=== PATIENT | female | born 1935 | race Caucasian/White ===

== ENCOUNTER 2024-08-30 13:19 | Outpatient (CLI) | payer MEDICARE, OTHER, SELFPAY ==
--- NOTE | ~2024-08-30 | MR_ITS ---
MRI of the lumbar spine Clinical History: Spinal stenosis Technique: Axial T2-weighted images, and sagittal T1-weighted, T2-weighted, and T2 fat-sat images wer e acquired. Findings: There is posterior fusion from L3 to L4, with bilateral rods and transpedicular screws pres ent. L5 laminectomy defects present. There is interbody fusion at L4-L5 disc space and L3-L4 disc spa ce. No acute fracture or subluxation seen. There is reactive marrow edema in the L1 and L2 vertebral bodies due to underlying degenerative disc disease. At L1-L2, there is severe degenerative disc narrowing. There is diffuse disc bulge with possible supe rimposed disc protrusion the right paracentral region. There is advanced facet arthropathy. There is moderate to severe spinal canal stenosis/thecal sac compression. There is severe right neural foramin al compromise, and moderate to severe left neural foraminal comprise. At L2-L3, there is moderate degenerative distended. There is diffuse disc bulge with advanced facet a rthropathy, resulting in moderate to severe spinal canal stenosis/thecal sac compression. There is ad vanced bilateral neural foraminal narrowing. At L3-L4, there is minimal disc bulge with advanced facet arthropathy. No central canal stenosis. The re is mild left neural foraminal narrowing. Right neural foramen preserved. At L4-L5, there is minimal disc bulge with advanced facet arthropathy. No central canal stenosis. The re is advanced left neural foraminal narrowing, and mild to moderate right neural foraminal narrowing . At L5-S1, there is moderate degenerative disc narrowing with diffuse disc bulge and severe facet arth ropathy. No central canal stenosis. There is severe bilateral neural foraminal comprise, right worse than left. Paravertebral soft tissues are unremarkable. Impression: Severe degenerative spondylosis, as above, especially at L1-L2 and L2-L3. Postoperative changes from L3 through L5, as above. Reviewed, dictated and finalized at location [employer] Impression: Severe degenerative spondylosis, as above, especially at L1-L2 and L2-L3. Postoperative changes from L3 through L5, as above.
== END 2024-08-30 13:20 | disposition home or self-care (01) ==
PROVIDERS: PCP Family Medicine; Visit Provider Neurological Surgery
DX: M48.07 Spinal stenosis, lumbosacral region (principal); M47.896 Other spondylosis, lumbar region
CPT/HCPCS: 72148

== ENCOUNTER 2025-01-15 12:26 | Outpatient (CLI) | payer MEDICARE, OTHER, SELFPAY ==
--- OUTSIDE RECORDS SUMMARY | 2025-01-15 12:44 | XMS_ITS ---
Author Organization [facility] Care Team Providers Care [employer] Supervisor Name Role Phone Young Shaikh Unavailable Unavailable Allergies and adverse reactions Code CodeSystem Substance Reaction Severity StartDate Concern Status [id number] SNOMED CT Sulfa Antibiotics Unknown 02/10/2021 active 55992 [id number] Glimepiride Unknown 02/10/2021 active Augmentin Unknown 02/10/2021 active Care Team Name Role Address Phone Organization Dates Young Shaikh [facility] [address], [place], [address], [place] (Office): : [facility] 02/10/2021 - 02/15/2021 Immunizations Immunization Status Vaccine Details Vaccine Code CodeSystem Deandre e Notes Influenza completed Influenza, high-dose, split virus, quadrivalent, injectable, preservative free 197 CVX created date: 02/11/2021 administere d date: 07/06/2020 TB 2 Step Mantoux Skin Test completed tuberculin skin test; unspecified formulation lotNumber: [id number] expiry: 11/17/2022 Mfg: [employer] Given 0.1 ml Left Forearm intradermally Step 1 of Multi-step 98 CVX created date: 02/11/2021 consent date: 02/11/2021 administere d date: 02/11/2021 Zostavax (Shingles) completed zoster vaccine recombinant 187 CVX created date: 02/11/2021 administere d date: 10/18/2020 Prevnar 13 completed pneumococcal conjugate vaccine, 13 valent 133 CVX created date: 02/11/2021 administere d date: 01/18/2017 SARS-COV-2 (COVID-19) completed SARS-COV-2 (COVID-19) vaccine, mRNA, spike protein, LNP, preservative free, 30 mcg/0.3mL dose Step 2 of Multi-step with next step required 208 CVX created date: 02/11/2021 administere d date: 12/24/2020 SARS-COV-2 (COVID-19) completed SARS-COV-2 (COVID-19) vaccine, mRNA, spike protein, LNP, preservative free, 30 mcg/0.3mL dose Step 1 of Multi-step with next step required 208 CVX created date: 02/11/2021 administere d date: 12/03/2020 Tdap completed tetanus toxoid, reduced diphtheria toxoid, and acellular pertussis vaccine, adsorbed 115 CVX created date: 02/11/2021 administere d date: 07/06/2019 Mental Status Section Date Assessment Total Score Description 02/15/2021 BIMS 15 cognitively int act CAM 0 No delirium ind icated PHQ-9 00 Problems Problem # Description Date of onset Resolved Date Code CodeSystem Concern Status 1 MUSCLE WEAKNESS (GENERALIZED) 02/11/[address] active 2 CHRONIC OBSTRUCTIVE PULMONARY DISEASE, UNSPECIFIED 02/10/[address] active 3 CONSTIPATION, UNSPECIFIED 02/10/[address] active 4 ENCOUNTER FOR OTHER SPECIFIED SURGICAL AFTERCARE 02/10/[address] active 5 ESSENTIAL (PRIMARY) HYPERTENSION 02/10/[address] active 6 EXTENDED SPECTRUM BETA LACTAMASE (ESBL) RESISTANCE 02/10/[address] active 7 FIBROMYALGIA 02/10/[address] acti ve 8 FUSION OF SPINE, THORACOLUMBAR REGION 02/10/[address] active 9 GASTRO-ESOPHAGEAL REFLUX DISEASE WITHOUT ESOPHAGITIS 02/10/[address] active 10 LOW BACK PAIN 02/10/[address] act blayne 11 MIXED HYPERLIPIDEMIA 02/10/[address] active 12 NOCTURIA 02/10/[address] active 13 TYPE 2 DIABETES MELLITUS WITHOUT COMPLICATIONS 02/10/[address] active 14 UNILATERAL PRIMARY OSTEOARTHRITIS, LEFT KNEE 02/10/[address] active 15 UNILATERAL PRIMARY OSTEOARTHRITIS, RIGHT KNEE 02/10/[address] active 16 UNSPECIFIED HEARING LOSS, BILATERAL 02/10/[address] active 17 UNSPECIFIED OSTEOARTHRITIS, UNSPECIFIED SITE 02/10/[address] active 18 URINARY TRACT INFECTION, SITE NOT SPECIFIED 02/10/[address] active 19 WHEEZING 02/10/[address] active Reason for Referral No Reasons for Referral Entered Social History Social History Observation Description Start Date End Date Code Code System Current Smoking Status Tobacco smoking consumption unknown 648442595 SNOMED CT Sex Assigned At Female 1935 24704-7 [facility] Vital Signs Code Code System Vitals Name Values and Units Timing Information 9279-1 [facility] Respiratory Rate Value=16.0 Units=/m in 02/16/2021 8867-4 [facility] Heart rate Value=88.0 Units=/min 02/2021 61669-1 [facility] O2 % BldC Oximetry Value=95.0 Units= % 02/16/2021 45608-7 [facility] Pain Level Value=0.0 02/15/2021 2339-0 [facility] Blood Sugar Bhpea=624.0 Units=mg/dL 02/15/2021 8462-4 [facility] Blood Pressure-Diastolic Value=76 Un its=mmHg 02/15/2021 8480-6 [facility] Blood Pressure-Systolic Rgphr=065 Un its=mmHg 02/15/2021 8310-5 [facility] Body Temperature Value=97.8 Units= F 02/15/2021 46914-8 [facility] Weight Wnkqe=119.6 Units=Lbs 8302-2 [facility] Height Value=62.0 Units=Inches 02/10/2021
--- OUTSIDE RECORDS SUMMARY | 2025-01-15 12:44 | XMS_ITS | Data Portability ---
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 ASSESSMENT/PLAN: The patient understands the risks of the procedure which include, but are not limited to bleeding, infection, wound breakdown, scarring, injury to adjacent structures, asymmetry and need for additional procedures. Verbal consent was given to proceed. Procedure: Excision of left posterior ear basal cell carcinoma 3.1 cm, intermediate closure 3.4 cm. Patient was numbed using 1% lidocaine with epinephrine in a local field block. Once adequate anesthesia was obtained the patient was prepped and draped in sterile fashion. The lesion was excised in an elliptical fashion and minimally undermined in either direction. The wound was irrigated, and hemostasis was obtained. The incision was closed in two layers with 4-0 Monocryl in the deep dermal layer and 4-0 Nylon in the skin. The patient tolerated the procedure well. The patient underwent the procedure and tolerated it well. I would like to see the patient back in 2 weeks. The incision can be cleansed in the next 24-48 hrs. I have advised light activity for the next 2-3 days to avoid bleeding. We can discuss scar massage and follow up at that time. The patient is amenable to the plan. cbg [email or web address] Not available 02/18/2024 09:54:31 04/09/2024 04/09/2024 The patient has a BCC which was excised, but the margin was positive 12-3:00. She returns for re-excision today. The patient understands the risks of the procedure which include, but are not limited to bleeding, infection, wound breakdown, scarring, injury to adjacent structures, asymmetry and need for additional procedures. The consent was signed prior to proceeding. Patient was numbed using 1% lidocaine with epinephrine in a local field block. Once adequate anesthesia was obtained the patient was prepped and draped in sterile fashion. Procedure: 1. Excision of Re excision Left postauricular area Basal Cell Carcinoma , Length 4.1 cm; Closure: intermediate, 4.4 cm Findings: Marking suture 12 o'clock, superior The lesion was excised in an elliptical fashion. and minimally undermined in either direction. The wound was irrigated, and hemostasis was obtained. The incision was closed in layers with suture. Deep dermal layer: 5-0 monocryl Skin/External layer: 5-0 Nylon A Bacitrican dressing was placed, and the patient tolerated the procedure well. A post-procedure instruction sheet was given to the patient. Tylenol and/or ibuprofen can be taken for pain control when the local anesthetic wears off. Intense activities as well as lifting/bending/ stooping should be avoided for the next 2-3 days to prevent bleeding and trauma to the surgical site. The site can be elevated and ice can be applied as needed. If bleeding occurrs, the patient was advised to hold pressure with ice for 20 minutes and if that doesn't resolve then call the office/contingents supervisor number provided. If pathology was sent, the patient will be called with this information as soon as it is available and has been interpreted by Dr. Steele. The patient was advised to call if any questions or concerns arise such as: fever/chills, spreading redness, severe pain and/or fever over 100.5 [id number] Not available 04/09/2024 14:27:39 04/16/2024 04/16/2024 Pt presents to clinic today for suture removal from Left Postauricular area Sutures were cleaned with alcohol wipe and removed in typical fashion. Sutures were clean, dry, and intact upon removal. Pt tolerated removal well and without complications. Bacitracin was applied to site. Pt was given scar care sheet and instructed to call with any questions/concer ns. [email or web address] Not available 04/16/2024 15:40:14 Plan of Treatment Reminders Order Date Submit Date Provider Last Modified By Organization Details Last Modified Time Details Appointments Establish ed Patient 15.EST 2024 09:30A M Dr. Ye Eckert Not available Not available Not available Establish ed Patient 15.EST 2024 10:30A M Dr. Ye Eckert Not available Not available Not available Establish ed Patient 15.EST 2024 11:15A M Dr. Christine Bell Not available Not available Not available Lab None recorded. Referral None recorded. Procedures None recorded. Surgeries None recorded. Imaging None recorded. Medication Orders None recorded. Patient TargetsNo targets recorded. Patient InstructionsNo instructions recorded. Reason for Referral None Reported. Results Created Date Observation Date Name Description Value Unit Range Abnormal Flag Note LastModifiedBy Organization Detail LastModifiedTime 02/08/20 24 02/11/2024 surgi clint patho logy study tissue exam biopsy [facility] [address],[place] [address] Ph. [phone] Russ Cueva MD, PhD, Medic al Direc tor DIETR NIKHIL MAN , CHRISTINE MANZANO Patie nt: PRASAD YAORenu Marrero e ID: [id number] Repor t Statu s: Final :0 1934 Case #: [id number] Age: 88 Y Gende r: F Date Colle cted: 02/07 MRN # : [id number] Date Recei adán: 02/07 Repor loco Date: 02/10 FINAL DIAGN OSIS: Skin, right exten sor forea rm, shave biops y : - Sebor rheic kerat osis, infla med ICD-1 0: L82.0 Elect farhana Zuñiga ied by Yescia Newell MD Elect farhana melvin 02/10 15:01 SPECI MEN SOURC E: Skin, right exten sor forea rm, shave biops y GROSS DESCR IPTIO N: The speci men conta iner( s) and requi sitio n have the same patie nt name. Recei adán in 10% neutr al buffe red forma yesica for forma yesica-f ixed paraf fin-e mbedd ed secti ons label ed righ t exten sor forea rm is an unori ented 1.5 x 1.2 cm fragm ent of nieves- mayer skin excis ed to a depth of 0.1 cm. A 1.5 x 1.2 x 0.2 cm eleva loco pink- mayer lesio n is prese nt on the skin surfa ce and is adjac ent to the bekah n. The speci men is inked , seria lly secti oned, and entir beverly submi tted for histo logic study in two [facility] ttes. CLINI CLINT INFOR MATIO N: Skin biops y, right exten sor forea rm, IK vs NMSC. Not Available [facility] [address] [place] [address], [id number], 02/11/2024 16:04:03 02/08/20 24 02/08/2024 biops y, tissu e tissue exam biopsy [facility] [address] ,formerly [facility] [place] [address] pH. russ cueva md, phd, medic al dire tor dietr christine werner md patie nt: maira parham id: [id number] repor t statu s: final :0 1934 case #: [id number] age: 88 Y gende r: F date colle cted: 02/07 mrn # : [id number] date recei adán: 02/07 repor loco date: 02/10 final diagn osis: skin, right exten sor forea rm, shave biops y : - sebor rheic kerat osis, infla med ICD-1 0: L82.0 elect farhana zuñiga ied by yesica newell md elect farhana melvin 02/10 15:01 speci men sourc e: skin, right exten sor forea rm, shave biops y gross descr iptio n: the speci men conta iner( s) and requi sitio n have the same patie nt name. recei adán in 10% neutr al buffe red forma yesica for forma yesica-f ixed paraf fin-e mbedd ed secti ons label ed _righ t exten sor forea rm_ IS an unori ented 1.5 x 1.2 cm fragm ent of nieves- mayer skin excis ed to a depth of 0.1 cm. A 1.5 x 1.2 x 0.2 cm eleva loco pink- mayer lesio n IS prese nt on the skin surfa ce and IS adjac ent to the bekah n. the speci men IS inked , seria lly secti oned, and entir beverly submi tted for histo logic study in two [facility] ttes. clini clint infor matio n: skin biops y, right exten sor forea rm, ik vs nmsc. ----- Not Available Not Available 10/15/2024 19:07:29 02/15/20 24 02/19/2024 surgi clint patho logy study tissue exam biopsy [facility] [address],[facility] [place] [address] Ph. Russ Cueva MD, PhD, [facility] al [facility] EMELY ADAIR MD Patijosh nt: PRASAD YAORenu Marrero e ID: [id number] Repor t Statu s: Final :0 1934 Case #: [id number] Age: 88 Y Gende r: F Date Colle cted: 02/14 MRN # : [id number] Date Recei adán: 02/14 Repor loco Date: 02/18 FINAL DIAGN OSIS: Skin, left posta uricu lar area, excis ion: - Basal cell carci noma, nodul ar and infil trati ve types - 12-3: 00 perip heral bekah n posit blayne for tumor - All other bekah ns negat blayne for tumor Elect farhana schmitt Verif ied by Yesica Newell MD Elect farhana Stout turjosh 02/18 11:10 SPECI MEN SOURC E: Skin, left posta uricu lar area, excis ion GROSS DESCR IPTIO N: The speci men conta iner( s) and requi sitio n have the same patie nt name. Recei adán in 10% neutr al buffe red forma yesica for forma yesica-f ixed paraf fin-e mbedd ed secti ons label ed exci graham left posta uricu lar area basal cell carci noma nodul ar infil trati ve stitc h 12:00 super ior is an orien loco 3.2 x 1.6 cm fragm ent of nieves- mayer skin excis ed to the depth of 0.4 cm. A black stitc h repre sents the 12:00 super ior bekah n. A 0.4 x 0.3 x 0.1 cm brown scab- like lesio n is prese nt on the skin surfa ce and is 0.5 cm from the close st bekah n. The speci men is inked black from -- , green from -, and blue from -12, seria lly secti oned, and entir beverly submi tted for histo logic study as follo ws: A1 12:00 tip, A2 3:00 tip A3-A5 remai nder. CLINI CLINT INFOR MATIO N: CLINI CLINT INFOR MATIO N: Skin biops y, left posta uricu lar area, basal cell carci noma nodul ar infil trati ve. Not Available [facility] [address] [place] [address], [id number], 02/19/2024 12:12:57 02/15/20 24 02/15/2024 biops y, tissu e tissue exam biopsy [facility] [address],[facility] [place] [address] pH. [phone] russ cueva md, phd, medic al direc tor cochemely ferrera md patijosh nt: maira parham sampl e id: [id number] repor t statu s: final :0 1934 case #: [id number] age: 88 Y gende r: F date colle cted: 02/14 mrn # : [id number] date recei adán: 02/14 repor loco date: 02/18 final diagn osis: skin, left posta uricu lar area, excis ion: - basal cell carci noma, nodul ar and infil trati ve types - 12-3: 00 perip heral bekah n posit blayne for tumor - all other bekah ns negat blayne for tumor elect farhana schmitt verif ied by yesica newell md elect farhana stout turjosh 02/18 11:10 speci men sourc e: skin, left posta uricu lar area, excis ion gross descr iptio n: the speci men conta iner( s) and requi sitio n have the same patie nt name. recei adán in 10% neutr al buffe red forma yesica for forma yesica-f ixed paraf fin-e mbedd ed secti ons label ed _exci graham left posta uricu lar area basal cell carci noma nodul ar infil trati ve stitc h 12:00 super ior_ IS an orien loco 3.2 x 1.6 cm fragm ent of nieves- mayer skin excis ed to the depth of 0.4 cm. A black stitc h repre sents the 12:00 super ior bekah n. A 0.4 x 0.3 x 0.1 cm brown scab- like lesio n IS prese nt on the skin surfa ce and IS 0.5 cm from the close st bekah n. the speci men IS inked black from -- 6, green from -, and blue from -12, seria lly secti oned, and nikkor beverly submi tted for histo logic study follo ws: A1 12:00 tip, A2 3:00 tip A3-A5 remai nder. clini clint infor matio n: clini clint infor matio n: skin biops y, left posta uricu lar area, basal cell carci noma nodul ar infil trati ve. ----- Not Available Not Available 10/15/2024 19:07:29 04/09/20 24 04/11/2024 surgi clint patho logy study tissue exam biopsy [facility] [address] [facility] [address],[place] [address] Ph. [phone] Russ Cueva MD, PhD, Medic al Direc tor COCHR ANEMELY MD Patie nt: MAIRA PARHAM e ID: [id number] Repor t Statu s: :0 1934 Case #: [id number] Age: 88 Y Gende r: F Date Colle cted: 04/09 MRN # : [id number] Date Recei adán: 04/09 Repor loco Date: FINAL DIAGN OSIS: Skin, left posta uricu lar area, excis ion: - Resid ual basal cell carci noma, infil trati ve type - New bekah n negat blayne for tumor Elect farhana schmitt Verif ied by Yesica Newell MD Elect farhana Signstephen ture 04/11 15:00 SPECI MEN SOURC E: Skin, left posta uricu lar area, excis ion GROSS DESCR IPTIO N: The speci men conta iner( s) and requi sitio n have the same patie nt name. Recei adán in 10% neutr al buffe red forma yesica for forma yesica-f ixed paraf fin-e mbedd ed secti ons label ed reex cisio n left posta uricu lar area basal cell carci noma nodul ar and infil trati ve, stitc h at 12:00 super ior is an orien loco ellip se of nieves- mayer skin and subcu taneo us soft tissu e that is 3.3 x 0.5 cm and is excis ed to a depth of 0.4 cm. A black sutur e desig nates the 12:00 super ior bekah n. There is no defin ite lesio n ident ified gross ly on the skin surfa ce. The true (new) bekah n is inked black 12-3- 6:00, the oppos ite side was inked blue on 12: 00, green on 6-9:0 0. The speci men is seria lly secti oned and entijeremi paul submi tted for histo logic study as follo ws: A1 12:00 tip, A2 6:00 tip, A3 to A5 remai nder from 12:00 to 6:00. CLINI CLINT INFOR MATIO N: CLINI CLINT INFOR MATIO N: Skin biops y, left posta uricu lar area, Basal cell carci noma nodul ar and infil trati ve types . Not Available [facility] [address] [place] [address], [id number], 04/11/2024 16:13:46 Result Notes None recorded. 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 590724241 Active [facility]23 [facility] 4 19:34:42 Seborrheic keratosis 342976498 Active 2023 Dori Matt [facility] 4 12:46:20 Lentiginosi s 265088319 Active 2023 Dori Matt [facility] 4 12:46:24 Inflamed seborrheic keratosis 694536917 [facility] 2023 Dori Matt [facility] 4 12:47:46 Primary basal cell carcinoma of left ear 0403904763457 105 Active 2023 [facility] 4 10:52:59 Basal cell carcinoma of skin 127487577 Active 2023 [facility] 4 10:48:53 Problem Notes None recorded. Medical Equipment None Reported. Allergies Allergen ID Allergen Name Allergen Category Reaction Reaction Severity Criticality Documentation Date Start Date Code Code System Note Provider Name and Address Organization Details Recorded Time 667447 Substance with sulfonami de structure and antibacte rial mechanism of action (substanc e) medicatio n vomiting Not available Not available 11/12/20232013 68111 8003 SNOMED React ion: Vomit ing; Not Available Not Available Not Available 831928 Augmentin medicatio n Not available Not available Not available 11/12/20232018 32274 2 RxNorm Not Available Not Available Not Available Medications Name Sig Start Date Stop Date Status Note LastModified by Organization Details LastModified Time amoxicillin 500 mg capsule TAKE 1 CAPSULE BY MOUTH THREE TIMES DAILY FOR 7 DAYS 08/12 completed Not Available Not Available Not Available fluconazole 100 mg tablet TAKE 1 TABLET BY MOUTH EVERY DAY 08/12 completed Not Available Not Available Not Available prednisone 10 mg tablet active Not Available Not Available Not Available azithromyci n 250 mg tablet TAKE 2 TABLETS BY MOUTH FOR 1 DAY THEN TAKE 1 TABLET BY MOUTH DAILY FOR 4 DAYS 08/12 completed Not Available Not Available Not Available fluconazole 150 mg tablet TAKE 1 TABLET BY MOUTH TODAY AND REPEAT IN 1 WEEK 08/12 completed Not Available Not Available Not Available benzonatate 200 mg capsule TAKE 1 CAPSULE BY MOUTH THREE TIMES DAILY NEEDED 08/12 completed Not Available Not Available Not Available cephalexin 250 mg capsule TAKE 1 CAPSULE BY MOUTH TWICE DAILY 08/12 completed Not Available Not Available Not Available hydrocodone 5 mg-acetamin ophen 325 mg tablet TAKE 1 TABLET BY MOUTH UP TO TWICE DAILY NEEDED active Not Available Not Available No t Available prednisone 20 mg tablet TAKE 1 TABLET BY MOUTH DAILY active Not Available Not Available No t Available glipizide ER 5 mg tablet, extended release 24 hr TAKE 1 TABLET BY MOUTH DAILY active Not Available Not Available No t Available Accu-Chek Softclix Lancets USE TO TEST TWICE DAILY active Not Available Not Available No t Available potassium chloride ER 10 mEq tablet,exte nded release TAKE 1 TABLET BY MOUTH DAILY active Not Available Not Available No t Available ciprofloxac in 250 mg tablet TAKE 1 TABLET BY MOUTH TWICE DAILY 08/12 completed Not Available Not Available Not Available ciprofloxac in 500 mg tablet TAKE 1 TABLET BY MOUTH TWICE DAILY 08/12 completed Not Available Not Available Not Available doxycycline monohydrate 100 mg tablet TAKE 1 TABLET BY MOUTH TWICE DAILY 08/12 completed Not Available Not Available Not Available tramadol 50 mg tablet TAKE 1 TABLET BY MOUTH EVERY 6 HOURS NEEDED active Not Available Not Available No t Available meclizine 25 mg tablet TAKE 1 TABLET BY MOUTH EVERY EIGHT HOURS NEEDED FOR VERTIGO active Not Available Not Available No t Available phenazopyri dine 100 mg tablet TAKE 1 TABLET BY MOUTH THREE TIMES DAILY NEEDED active Not Available Not Available No t Available baclofen 10 mg tablet TAKE 1 TABLET BY MOUTH THREE TIMES DAILY NEEDED 08/12 completed Not Available Not Available Not Available simvastatin 5 mg tablet TAKE 1 TABLET BY MOUTH DAILY active Not Available Not Available No t Available hydrocodone 7.5 mg-acetamin ophen 325 mg tablet TAKE 1 TABLET BY MOUTH FOUR TIMES DAILY NEEDED active Not Available Not Available No t Available cephalexin 500 mg capsule 08/12 completed Not Available Not Available Not Available pantoprazol e 40 mg tablet,daquan yed release Take 1 Tablet by mouth two times daily active Not Available Not Available No t Available cevimeline 30 mg capsule TAKE 1 CAPSULE BY MOUTH DAILY active Not Available Not Available No t Available lisinopril 10 mg-hydrochl orothiazide 12.5 mg tablet TAKE 1 TABLET BY MOUTH DAILY active Not Available Not Available No t Available methylpredn isolone 4 mg tablets in a dose pack FOLLOW PACKAGE DIRECTION S active Not Available Not Available No t Available albuterol sulfate HFA 90 mcg/actuati on aerosol inhaler INHALE 2 PUFFS BY MOUTH THREE TIMES DAILY NEEDED active Not Available Not Available No t Available ondansetron 4 mg disintegrat ing tablet active Not Available Not Available N ot Available cefdinir 300 mg capsule TAKE 1 CAPSULE BY MOUTH TWICE DAILY FOR 10 DAYS 08/12 completed Not Available Not Available Not Available fluticasone propionate 50 mcg/actuati on nasal spray,suspe nsion SPRAY 1 SPRAY INTO NOSTRIL ONCE DAILY 08/12 completed Not Available Not Available Not Available metformin ER 500 mg tablet,exte nded release 24 hr TAKE 1 TABLET BY MOUTH DAILY active Not Available Not Available No t Available cyclobenzap rine 5 mg tablet TAKE 1 TABLET BY MOUTH TWICE DAILY NEEDED FOR MUSCLE SPASMS. DO NOT TAKE WHILE DRIVING OR OPERATING HEAVY EQUIPMENT 08/12 completed Not Available Not Available Not Available nitrofurant oin monohydrate /macrocryst als 100 mg capsule TAKE 1 CAPSULE BY MOUTH EVERY NIGHT AT BEDTIME OR TAKE 1 TWICE DAILY FOR 3 DAYS IF FEEL INFECTION STARTING active Not Available Not Available No t Available pregabalin 75 mg capsule TAKE 1 CAPSULE BY MOUTH TWICE DAILY active Not Available Not Available No t Available pregabalin 100 mg capsule TAKE 1 CAPSULE BY MOUTH THREE TIMES DAILY active Not Available Not Available No t Available Accu-Chek Guide test strips USE TO TEST BLOOD SUGAR TWICE DAILY active Not Available Not Available No t Available Vitals Date Recorded Body height Body mass index (BMI) Body weight Provider Name and Address Organization Details Last Updated DateTime 02/15/2024 167.64 cm 24.7 kg/m2 42863.63 g Rosio Villaltaalexus [facility] 02/15/2024 11:23:14 Date Recorded Body height Body mass index (BMI) Body weight Provider Name and Address Organization Details Last Updated DateTime 04/09/2024 167.64 cm 24.7 kg/m2 58543.63 g Savanna Briones [facility] 04/09/2024 12:02:26 Date Recorded Body height Provider Name an d Address Organization Details Last Updated DateTime 08/12/2024 167.64 cm Dori Gutierrez [facility] 08/12/2024 12:39:43 Social History None recorded. Functional Status None recorded. Mental Status None recorded. Family History Nothing Reported. Medical History No medical history recorded. Gynecological HistoryNo gynecological history recorded. Obstetrics History GPAL:G 0 P 0 0 0 0 Past Encounters Encounter ID Performer Location Encounter Start Date Encounter Closed Date Diagnosis/Indication Diagnosis SNOMED-CT Code Diagnosis ICD10 Code Diagnosis Note [id number] Dori Steele MD [facility] ([place]) [address] [place] [phone] 01/18/2024 11:43:36 01/18/2024 13:59:34 Basal cell carcinoma of postauricular skin 116446122 C44.41 [id number] Dori Steele MD [facility] ([place]) [address] [place] [phone] 02/15/2024 10:53:39 02/15/2024 12:11:11 Primary basal cell carcinoma of left ear 3817483429 183100 C44.411 [id number] Kennedi Vora [facility] [place] ([place]) [address] [place] [phone] 02/28/2024 11:32:43 02/28/2024 12:01:47 Primary basal cell carcinoma of left ear 4031145444 708993 C44.219 Pt presents to clinic today for suture removal from left post ear. Sutures were cleaned with alcohol wipe and removed in typical fashion. Sutures were clean, dry, and intact upon removal. Pt tolerated removal well and without complicati ons. Bacitracin was applied to site. Pt was given scar care sheet and instructed to call with any questions/ concerns. [id number] Dori Steele MD [facility] ([place]) [address] [place] [phone] 04/09/2024 11:52:59 04/09/2024 14:06:11 Basal cell carcinoma of skin 964988429 C44.009 [id number] Jaqui Kim [facility] [place] ([place]) [address] [place] [phone] 04/16/2024 14:37:35 04/17/2024 07:06:48 [id number] Christine Bell MD [facility] ([place]) [address] [place] [address] 08/12/2024 12:12:29 08/12/2024 12:56:42 History of malignant neoplasm of skin excluding melanoma 824973683 Z85.828 History of {{melanoma . Recall in task to reflect the date of the patient's next appointmen t. We discussed the importance of regular skin examinatio ns by a physician as well as monthly self skin examinatio ns. nonmel anoma skin cancer. We discussed the importance of regular skin examinatio ns by a physician as well as self skin examinatio ns.* melan nathanael-in-sit u. Recall in task to reflect the date of her next appointmen t. We discussed the importance of regular skin examinatio ns by a physician as well as monthly self skin examinatio ns. melano ma and nonmelanom a skin cancer. Recall in task to reflect the date of her next appointmen t. We discussed the importance of regular skin examinatio ns by a physician as well as monthly self skin examinatio ns.}} We discussed the worrisome changes to watch for in skin lesions. We discussed the importance of watching for new and/or changing lesions. We discussed the importance of photoprote ction using protective clothing and sunscreen with SPF thirty or higher. Seborrheic keratosis 394 239000 L82.1 {{Hemangio ma Hemangi omas Sebor rheic keratosis Seborrheic keratoses* Acrochord on Acrocho technical director Sebace ous hyperplasi a Telangie ctasia Tel angiectase s Milium M karena Open comedone O pen comedones Neurofibro ma Neurofi bromas Lip omas Fibro us papules}}: The risks and benefits of the procedure, the risks and benefits of alternativ e procedures , as well as the possible consequenc es of not undergoing the procedure were discussed. The potential for recurrence and developmen t of further lesions was discussed. The potential pigmentary changes was discussed. The patient verbalizes understand ing and gives consent to proceed with treatment. {{Lesions on the * were treated with liquid nitrogen. Lesions on the face were treated with liquid nitrogen.# }} The patient tolerated the procedure well. Post-treat ment instructio ns were discussed. Lentiginosis [id number] L 81.4 We discussed the fact that lentigines are actinicall y induced and that they are benign. We discussed the fact that they should be watched carefully for change. We discussed the importance of photoprote ction using protective clothing and sunscreen with SPF fifteen or higher on a regular basis. Inflamed s eborrheic keratosis [id number] L82.0 {{Irritate d seborrheic keratosis* Irritated skin tag}} right posterior arm: We discussed the benign nature of the lesion and that it is legitimate ly irritated. The risks and benefits of the procedure, the risks and benefits of alternativ e procedures , as well as the possible consequenc es of not undergoing the procedure were discussed. The potential for recurrence and developmen t of further lesions was discussed. The potential pigmentary changes was discussed. The patient verbalizes understand ing and gives consent to proceed. {{The lesion was treated with liquid nitrogen.* }}This was discussed with the patient. The patient tolerated the procedure well. Post-treat ment instructio ns were discussed. Patient is asked to call the office if the lesion is not healed/res olved as expected. I asked the patient to return {{in 1* in 2 in 3 in 4 in 5 in 6}} {{weeks mo nth months year* yea rs}} {{as previously scheduled for recheck of for recheck of skin cancer* fo r recheck of actinic keratoses for skin exam for recheck of psoriasis for recheck of actinicall y damaged skin for recheck of melanoma p rn pending pathology report}} . The patient will call with any questions or concerns in the meantime. Health Concerns Section Related Observation LastModified by Organization Detai ls LastModified Time None Recorded Concern Status LastModified by Organization Details LastModified Time None Recorded Advance Directives Directive None Recorded Payers Encounter Date Sequence Insurance Name Policy Number Policy Hair Covered Member ID Hair Member ID Guarantor Name 02/15/2024 1 [place] Pansy J Day [id number] Pansy J Day 02/15/2024 2 [facility] [id number] Pansy J Day [id number] Pansy J Day 02/28/2024 1 [place] Pansy J Day [id number] Pansy J Day 02/28/2024 2 [facility] [id number] Pansy J Day [id number] Pansy J Day 04/09/2024 1 [place] Pansy J Day [id number] Pansy J Day 04/09/2024 2 [facility] [id number] Pansy J Day [id number] Pansy J Day 04/16/2024 1 [place] Pansy J Day [id number] Pansy J Day 04/16/2024 2 [facility] [id number] Pansy J Day [id number] Pansy J Day 08/12/2024 1 [place] Pansy J Day [id number] Pansy J Day 08/12/2024 2 [facility] [id number] Pansy J Day [id number] Pansy J Day Notes Date Note Type Note Provider Name and Address Organization Details Recorded Time 08/12/2024 text/html {{EPV * NPV- Ref er to Dermatology Pratient History form in the EHR, that has been reviewed and signed. Please refer to this form for Past Medical History, Family History and adiitional Social History. EPV/NPV - Refer to Dermatology Patient History form in the HER that has been reviewed and signed. Please refer to this form for Past Medical History, Family History, and additional Social History.}}Date last seen: 02/08/24 for spot check Patient presents today for a: {{3 month recheck of skin cancer 6 month recheck of skin cancer* 1 year recheck of skin cancer}}Recently treated lesion(s): {{No See past/med surg*}}History of actinic keratoses previously treated: {{Yes* No}}Previou s treatments:{{Liqui d nitrogen* Fluorour acil Aldara}} New/changing lesions (location): Itchy lesion on right posterior arm Other concerns: right cheek and right voodoo Regular use of sunscreen with SPF 15 or greater: {{Yes No*}}Regular use of protective clothing: {{Yes No*}}Regular performance of self skin examinations: {{Yes* No}}Major change in health status since last visit: {{Yes No*}} Christine Bell MD [address] [place] [address], [phone], [facility] 08/12/2024 13:01:37 OBGyn Episode No OBEpisode recorded.
--- OUTSIDE RECORDS SUMMARY | 2025-01-15 12:44 | XMS_ITS | Encounter Summary ---
Author Organization [facility] Address [address] [place] [address] Care Team Providers Care Automotive Sales Associate Name Role Phone Young Shaikh MD Primary Care Provider [phone] Sreekanth Donovan MD Unavailable Unavailable Donis Eric MD Unavailable [phone] Contreras Sanchez MD Primary Care Provider [phone] Zeyad Chacon MD Primary Care Provider [phone] Encounter Details Date Type Department Care Team (Late st Contact Info) Description 03/22/2019 Abstract SFL CONVERSION [address] [place] [address] , Generic Conversion, Social History Tobacco Use Types Packs/Day Years Used Date Smoking Tobacco: Former Smokeless Tobacco: Never Alcohol Use Standard Drinks/Week Comments No 0 (1 standard drink = 0.6 oz pur e alcohol) Comments Unknown Sex and Gender Information Value Date Recorded Sex Assigned at Not on file Legal Sex Female 6:11 PM CDT Gender Identity Not on file Sexual Orientation Not on file documented as of this encounter Plan of Treatment Not on file documented as of this encounter Visit Diagnoses Not on filedocumented in this encounter Additional Health Concerns Infection Onset Date Last Indicated Resolved Time MRSA Comment:Self reported positive per PAT, negative MRSA 03/07/2019, cleared (JJ) 10/30/2018 10/30/2018 04/23/2020 1:59 PM C DT COVID-19 Rule Out 04/20/2020 04/20/2020 04/22/2020 3:29 AM CDT ESBL - Extended Spectrum Beta-lactamase Comment:10/17/19 Urine (JJ) 12/08/19 Urine (JJ) 04/23/2020 04/23/2020 COVID-19 Rule Out 11/06/2020 11/06/2020 11/07/2020 1:55 PM QUALITY ASSURANCE REPRESENTATIVE COVID-19 Rule Out 02/04/2021 02/04/2021 02/05/2021 8:40 PM CDT COVID-19 Rule Out 02/10/2021 02/10/2021 02/10/2021 10:24 AM CDT COVID-19 Rule Out 01/28/2022 01/28/2022 01/28/2022 7:03 PM CDT COVID-19 Rule Out 06/05/2022 06/05/2022 06/05/2022 12:55 PM CDT COVID-19 Rule Out 06/14/2022 06/14/2022 06/14/2022 7:22 PM CDT COVID-19 Rule Out 10/15/2023 10/15/2023 10/15/2023 11:13 AM QUALITY ASSURANCE REPRESENTATIVE COVID-19 Rule Out 12/14/2023 12/14/2023 12/14/2023 2:04 PM QUALITY ASSURANCE REPRESENTATIVE documented as of this encounter Care Teams Automotive Sales Associate Relationship Specialty Start Date End Date Young Shaikh MD [address] [place] [address] PCP - General FAMILY PRACTICE 11/23/17 09/04/22 Contreras Sanchez MD [address] [place] [address] PCP - General FAMILY PRACTICE 09/05/22 12/13/23 [place] [address] PCP - General FAMILY PRACTICE 12/14/23 Sreekanth Donovan MD [address] [place] [address] INTERVENTIONAL CARDIOLOGY 10/31/18 09/21/19 Donis Eric MD [address] [place] [address] [place] [employer] Worker CARDIOVASCULAR DISEASE 09/22/19 documented as of this encounter
--- OUTSIDE RECORDS SUMMARY | 2025-01-15 12:44 | XMS_ITS | Clinical Summary ---
Author Organization [facility] Address [address] [place] [address] Phone Care Team Providers Care Mail Processing Clerk Name Role Phone Young Shaikh MD Primary Care Provider Allergies Active Allergy Reactions Criticality Noted Date Comments Sulfa Antibiotics Nausea 09/18/2016 Medications lisinopril (PRINIVIL, ZESTRIL) 10 MG Tablet Take 10 mg by mouth daily. Active Lovastatin 10 MG Tablet Take 10 mg by mouth daily. Active raNITIdine (ZANTAC) 75 MG/5ML Syrup Take 150 mg by mouth every 12 hours. Active pregabalin (LYRICA) 75 MG Capsule Take 75 mg by mouth 3 times daily. Active Active Problems Problem Noted Date Diagnosed Date Incontinence 09/22/2016 Cystocele 09/22/2016 Social History Tobacco Use Types Packs/Day Years Used Date Smoking Tobacco: Former Cigarettes Q uit: 09/14/1992 Alcohol Use Standard Drinks/Week Comments Not Asked 0 (1 standard drink = 0.6 oz pur e alcohol) Comments Unknown Sex and Gender Information Value Date Recorded Sex Assigned at Not on file Legal Sex Female 8:20 PM CDT Gender Identity Not on file Sexual Orientation Not on file Last Filed Vital Signs Vital Sign Reading Time Taken Comments Blood Pressure 128/70 09/18/2016 10:50 AM HOME SALES CONSULTANT Pulse - - Temperature - - Respiratory Rate - - Oxygen Saturation - - Inhaled Oxygen Concentration - - Weight 73.9 kg (163 lb) 09/18/2016 10:50 AM HOME SALES CONSULTANT Height 165.1 cm (5' 5 ) 09/18/2016 10:50 AM HOME SALES CONSULTANT Body Mass Index 27.12 09/18/2016 10:50 AM HOME SALES CONSULTANT Plan of Treatment Health Maintenance Due Date Last Done Comments Hepatitis C Virus (HCV) Screening 1935 TdaP Immunization 1935 Pneumococcal Immunization (5 0+ years) (1 of 1 - PCV) 1986 Zoster Immunization (1 of 2) 1986 Respiratory Syncytial Virus (RSV) Immunization (Adult) (1 - 1-dose 75+ series) 2011 SARS-COV-2 Immunization (1 - 2023- season) 2024 Influenza Immunization (Seas on Ended) 2025 Hepatitis B Immunization Aged Out No longer eligible based on patient's age to complete this topic Meningococcal Immunization (ACWY) Aged Out No longer eligible based on patient's age to complete this topic Rotavirus Immunization Aged Out No lo nger eligible based on patient's age to complete this topic Insurance [facility] Care Teams Mail Processing Clerk Relationship Specialty Start Date End Date Young Shaikh MD [address] [address] PCP - General Family Medicine 09/18/16
--- OUTSIDE RECORDS SUMMARY | 2025-01-15 12:44 | XMS_ITS | Clinical Summary ---
Author Organization [facility] Address [address] [place] [address] Care Team Providers Care Water Pump Servicer Name Role Phone Donis Eric MD Unavailable [phone] Zeyad Chacon MD Primary Care Provider [phone] Allergies Active Allergy Reactions Criticality Noted Date Comments Fexofenadine Unknown 01/23/2022 Amoxicillin-Pot Clavulanate GI Upset Low 04/30/20 19 Glimepiride Nausea Only 04/17/2020 Sulfa Antibiotics Nausea Only 04/17/2020 Medications simvastatin 5 MG tabletIndicatio ns:Hyperlipidem ia Take 1 tablet (5 mg total) by mouth daily. Indications: High Amount of Fats in the Blood 5 8 Active potassium chloride CR 10 MEQ Tab CR tabletIndicatio ns:K+ replacement Take 1 tablet (10 mEq total) by mouth daily. Indications: K+ replacement 8 Active pregabalin (LYRICA) 75 MG capsuleIndicati ons:fibromyalgi a Take 1 capsule (75 mg total) by mouth 3 (three) times daily. Indications: fibromyalgia Active calcium carbonate-vitam in D 600-400 MG-UNIT tabletIndicatio ns:Nutritional Support Take 1 tablet by mouth daily. Indications: Nutritional Support Active Glucose Blood test stripIndication s:glucose monitoring daily. Indications: glucose monitoring 6 Active cevimeline 30 MG capsuleIndicati ons:dry mouth Take 1 capsule (30 mg total) by mouth nightly at bedtime. Indications: dry mouth 3 9 Active albuterol sulfate HFA 108 (90 Base) MCG/ACT inhalerIndicati ons:shortness of breath Inhale into the lungs every 4 (four) hours as needed for Wheezing. Indications: shortness of breath 1 Active STOOL SOFTENER 100 MG capsuleIndicati ons:stool softener Take 1 capsule (100 mg total) by mouth daily as needed. Indications: stool softener 1 Active lisinopril-hydr oCHLOROthiazide (ZESTORETIC) 10-12.5 MG tabletIndicatio ns:blood pressure Take 1 tablet by mouth daily. Indications: blood pressure 2 Active pantoprazole EC (PROTONIX) 40 MG tabletIndicatio ns:acid reflux Take 1 tablet (40 mg total) by mouth 2 (two) times daily. Indications: acid reflux 2 Active glipiZIDE XL (GLUCOTROL XL) 5 MG 24 hr tabletIndicatio ns:Diabetes Mellitus Take 1 tablet (5 mg total) by mouth daily. Indications: Diabetes 30 tablet 3 Active HYDROcodone-maribell taminophen (NORCO) 5-325 MG tabletIndicatio ns:Chronic Pain Take 1 tablet by mouth 2 (two) times daily as needed for Pain. Indications: Chronic Pain 3 Active sucralfate (CARAFATE) 1 G tablet 3 Active SOFTCLIX LANCETS [facility] USE 1 LANCET TO TEST BLOOD GLUCOSE ONCE DAILY 3 Active traMADol (ULTRAM) 50 MG tabletIndicatio ns:Acute Pain < 3 Day Supply Take 1 tablet (50 mg total) by mouth every 6 (six) hours as needed. Indications: Acute Pain < 3 Day Supply 12 tablet 4 Active cefdinir (OMNICEF) 300 MG Cap capsule Take 1 capsule (300 mg total) by mouth 2 (two) times daily. Active fluticasone propionate (FLONASE) 50 MCG/ACT nasal spray 1 spray by Nasal route daily. 1 g 4 Active Active Problems Problem Noted Date Diagnosed Date Degeneration of lumbar intervertebral disc 09/04 Neck pain 04/04/2023 Acute bilateral low back pain with left-sided sc iatica 02/15/2023 Encephalopathy 11/21/2022 Effusion of right knee joint 11/07/2022 Acute cystitis 10/04/2022 UTI (urinary tract infection) 09/05/2022 MRSA (methicillin resistant Staphylococcus aureu s) 06/09/2022 Overview (06/09/2022): MRSA in urine at [facility] approx 5 years ago; has had a Negative nasal culture 03/07/19 Trochanteric bursitis of right hip 04/27/2021 Lumbar back pain 04/06/2021 Radiculopathy, lumbar region 01/07/2021 Recurrent urinary tract infection 11/02/2020 Overview (11/02/2020): Added automatically from request for surgery [id number] Urinary incontinence 04/26/2020 Primary osteoarthritis of right knee 11/10/2019 Primary osteoarthritis of left knee 10/30/2019 Aftercare following surgery 05/14/2019 Complex tear of medial menis cus of right knee as current injury, subsequent encounter 04/03/2019 Lateral meniscus derangement, right 04/03/2019 Arthritis of right knee 03/27/2019 Nocturia 05/03/2018 Osteoarthrosis 05/03/2018 Sensory urge incontinence 05/03/2018 Urinary urgency 05/03/2018 Essential (primary) hypertension 11/23/2017 Hyperlipidemia, mixed 11/23/2017 Knee pain 02/08/2017 Cystocele 09/22/2016 Diabetes mellitus ([facility]) 09/01/2013 Resolved Problems Problem Noted Date Diagnosed Date Resolved Date Abdominal pain 10/04/2022 10/04/2022 Encounter for preventive health examination 09/01/2013 06/25/2020 Family History Medical History Relation Comments Heart Attack Brother Heart Disease Father Heart Disease Mother Diabetes Sister 1 Heart Attack Sister 1 No Known Problems Sister 2 Relation Status Comments Brother Alive Father Mother Sister 1 Sister 2 Alive Social History Tobacco Use Types Packs/Day Years Used Date Smoking Tobacco: Former Cigarettes 0.5 15 1 955 - 1970 Smokeless Tobacco: Never Comments:quit smoking 1997 Alcohol Use Standard Drinks/Week Comments No 0 (1 standard drink = 0.6 oz pur e alcohol) OASIS D0700: Social Isolation Answer Da te Recorded Frequency of experiencing loneliness or isolatio n Never 01/24/2023 OASIS A1250: Transportation Answer Date Recorded Lack of Transportation (Medical) No 01/24/2023 Lack of Transportation (Non-Medical) No 01/24/2023 Patient Unable or Declines to Respond No 01/24/2023 OASIS B1300: Health Literacy Answer Deandre e Recorded Frequency of needing help to read materials from doctor or pharmacy Never 01/24/2023 Humiliation, Afraid, Rape, and Kick questionnair e Answer Date Recorded Within the last year, have y ou been afraid of your partner or ex-partner? Patient declined 11/21/2022 Within the last year, have y ou been humiliated or emotionally abused in other ways by your partner or ex-partner? Patient declined 11/21/2022 Within the last year, have y ou been kicked, hit, slapped, or otherwise physically hurt by your partner or ex-partner? Patient declined 11/21/2022 Within the last year, have y ou been raped or forced to have any kind of sexual activity by your partner or ex-partner? Patient declined 11/21/2022 Social Connection and Isolation Panel [NHANES] A nswer Date Recorded In a typical week, how many times do you talk on the phone with family, friends, or neighbors? Patient declined 11/21/2022 How often do you get togethe r with friends or relatives? Patient declined 11/21/2022 How often do you attend bahai or tenriism serv ices? Patient declined 11/21/2022 Active Member of Clubs or Organizations Not on f ile 11/21/2022 How often do you attend meet ings of the clubs or organizations you belong to? Patient declined 11/21/2022 Are you , , di vorced, , never , or living with a partner? Patient declined 11/21/2022 AUDIT-C Answer Date Recorded Q1: How often do you have a drink containing alc ohol? Patient declined 11/21/2022 Q2: How many drinks containi ng alcohol do you have on a typical day when you are drinking? Patient declined 11/21/2022 Q3: How often do you have si x or more drinks on one occasion? Patient declined 11/21/2022 Overall Financial Resource Strain (CARDIA) Answe r Date Recorded How hard is it for you to pa y for the very basics like food, housing, medical care, and heating? Patient declined 11/21/2022 PHQ-2 Answer Date Recorded Patient Health Questionnaire-2 Score 0 11/21/2022 [facility] - Occupational Stress Questionnaire Answer Date Recorded Do you feel stress - tense, restless, nervous, or anxious, or unable to sleep at night because your mind is troubled all the time - these days? Patient declined 11/21/2022 Exercise Vital Sign Answer Date Recorde d On average, how many days pe r week do you engage in moderate to strenuous exercise (like a brisk walk)? Patient declined On average, how many minutes do you engage in exercise at this level? Patient declined 11/21/2022 Hunger Vital Sign Answer Date Recorded Within the past 12 months, y ou worried that your food would run out before you got the money to buy more. Patient declined Within the past 12 months, t he food you bought just didn't last and you didn't have money to get more. Patient declined 04/2023 PRAPARE - Transportation Answer Date Re corded In the past 12 months, has l ack of transportation kept you from medical appointments or from getting medications? Patient declined 11/21/2022 In the past 12 months, has l ack of transportation kept you from meetings, work, or from getting things needed for daily living? Patient declined 11/21/2022 Housing Stability Vital Sign Answer Deandre e Recorded In the last 12 months, was t here a time when you were not able to pay the mortgage or rent on time? Patient refused 11/21/19 23 In the last 12 months, how many places have you lived? 1 11/21/2022 In the last 12 months, was t here a time when you did not have a steady place to sleep or slept in a long term (including now)? Patient refused 11/21/2022 Comments No Sex and Gender Information Value Date Recorded Sex Assigned at Not on file Legal Sex Female 6:11 PM CDT Gender Identity Not on file Sexual Orientation Not on file Last Filed Vital Signs Vital Sign Reading Time Taken Comments Blood Pressure 135/85 04/06/2024 3:19 PM CDT Pulse 83 04/06/2024 3:19 PM CDT Temperature 36.6 C (97.8 F) 04/06/2024 3:19 PM CDT Respiratory Rate 18 04/06/2024 3:19 PM CDT Oxygen Saturation 98% 04/06/2024 3:19 PM CDT Inhaled Oxygen Concentration - - Weight 69.2 kg (152 lb 9.6 oz) 04/06/2024 3:19 P M CDT Height 165.1 cm (5' 5 ) 04/06/2024 3:19 PM CDT Body Mass Index 25.39 04/06/2024 3:19 PM CDT Plan of Treatment Health Maintenance Due Date Last Done Comments Diabetes: Retinopathy Eye Exam 1953 Annual Medicare Wellness Visit 2001 RSV Immunization or 60+ Years (1 - 1-dose 75+ series) 2011 Pneumococcal Vaccine: 65+ Years (2 of 2 - PPSV23 or PCV20) 03/15/2017 01/18/2017 Zoster Vaccines (2 of 2) 12/13/2020 10/18/2020 COVID-19 Vaccine ( season) 2024 08/10/2022, 07/05/2021, 12/24/2020, Additional history exists Influenza Adult (#1) 2024 07/06/2020, 07/22/2018, 07/25/2017 Hemoglobin A1C 03/20/2025 09/19/2024, 06/1 10/2023, 09/14/2023, Additional history exists Lipid Panel 03/25/2025 03/25/2024, 06/0 10/2021, 01/06/2020, Additional history exists DTaP, Tdap and Td Vaccines (2 - Td or Tdap) 07/06/2029 07/06/2019 Meningococcal B Vaccine Aged Out No l onger eligible based on patient's age to complete this topic Meningococcal Vaccine Aged Out No justina nadya eligible based on patient's age to complete this topic RSV Immunizations Under 20 Months Aged Out No longer eligible based on patient's age to complete this topic Goals Goal Patient Goal Type Associated Problems Recent Progress Patient-Stated? Author Patient will return to prior living situation and remain independent in ADLs upon discharge from hospital Lifestyle No Gayathri Linder RN Patient will return to prior living situation and remain independent in ADLs upon discharge from hospital Lifestyle No Gayathri Linder RN Safety Patient/family will have appropriate support at home upon discharge Lifestyle No Radha Herrera RN Medical Devices Implanted Type Area Egg Caser Device Identifier Shelf Expiration Date Model / Serial / Lot Graft Bone Bonus Triad Cancellous Cortical 1cc Allograft - [id number] Implanted:Qty: 1 on 02/07/2021 by Young Lees MD at [facility] Bone N/A: Spine Lumbar [employer] 07/22/2025 [id number] / [id number] / NA Sling Advantage Fit Mid-Urethral Transvaginal - [id number] Implanted:Qty: 1 on 04/26/2020 by Miles Wallis MD at [facility] N/A: Urinary Bladder CloudSwitch MAVIS 10/20/2022 [id number] / / [id number] Set Screw Implanted:Qty: 4 on 02/07/2021 by Young Lees MD at [facility] N/A: Spine Lumbar NEW AGE MEDICAL [id number] / / NA 5.5 X 30 Mm Mis Avtar Implanted:Qty: 1 on 02/07/2021 by Young Lees MD at [facility] N/A: Spine Lumbar NEW AGE MEDICAL [id number] / / NA 6.5 X 45 Mm Cortical Polyaxial Screw Implanted:Qty: 4 on 02/07/2021 by Young Lees MD at [facility] N/A: Spine Lumbar NEW AGE MEDICAL [id number] / / NA F3d Straight, 34 Mm X 10 Mm-0 Degree 12 Mm Implanted:Qty: 1 on 02/07/2021 by Young Lees MD at [facility] N/A: Spine Lumbar 10/19/2027 [id number] / / [id number] Description:CORELINK 5.5 X 35 Mm Mis Avtar Implanted:Qty: 1 on 02/07/2021 by Young Lees MD at [facility] N/A: Spine Lumbar NEW AGE MEDICAL [id number] / / NA Explanted Type Area Egg Caser Device Identifier Shelf Expiration Date Model / Serial / Lot 1.4 Mm Guide Wire Explanted:Qty: 1 on 02/07/2021 by Young Lees MD at [facility] N/A: Spine Lumbar NEW AGE MEDICAL NAM-GUIDEW KEREN-SS-SHANNON NT 1.4 / / NA Procedures Procedure Name Priority Date/Time Associated Diagnosis Comments HEMOGLOBIN, GLYCOSYLATED Routine 09/19/2024 10:12 AM CLAY PUDDLER Diabetes mellitus type 2, controlled ([facility]) LIPID PANEL Routine 03/25/2024 9:04 AM CDT Type 2 diabetes mellitus without complication, without long-term current use of insulin from Last 3 Months or Most Recently Relevant to Health Maintenance Results * (ABNORMAL) HEMOGLOBIN, GLYCOSYLATED (09/19/2024 10:12 AM CLAY PUDDLER) Pathologist [facility] HGB A1C 5.8(H) <5.7 % 09/20/2024 4:16 PM CLAY PUDDLER [facility] ESTIMATED AVG GLUCOSE 120(H) 74 - 114 MG/DL 09/20/2024 4:16 PM [facility] 09/19/2024 10:1 2 AM CLAY PUDDLER Zeyad Chacon MD LABORATORY Final Result [facility] [address] [place] [address], [id number] * LIPID PANEL (03/25/2024 9:04 AM CDT) CHOLESTEROL 130 MG/DL 03/25/2024 12:15 PM CDT [facility] Comment:DESIRABLE: <200 TRIGLYCERIDES 74 MG/DL 03/25/2024 12:15 PM CDT [facility] Comment:<150 NORMAL HDL 50 >49 MG/DL 03/25/2024 12:15 PM CDT [facility] LDL-C 65 MG/DL 03/25/2024 12:15 PM CDT [facility] Comment:<100 OPTIMAL VLDL CALCULATION 15 MG/DL 03/25/20 12:15 PM CDT [facility] Comment:REFERENCE RANGE NOT ESTABLISHED CHOL/HDL RATIO 2.6 03/25/2024 12:15 PM CDT [facility] Comment:REFERENCE RANGE NOT ESTABLISHED LDL/HDL 1.3 03/25/2024 12:15 PM CDT [facility] Comment:REFERENCE RANGE NOT ESTABLISHED NON HDL CHOLESTEROL 80 MG/DL 03/25/2024 12:15 PM CDT [facility] Comment:REFERENCE RANGE NOT ESTABLISHED 03/25/2024 9:04 AM CDT Zeyad Chacon MD LABORATORY Final Result [facility] [address] [place] [address], [id number] from Last 3 Months or Most Recently Relevant to Health Maintenance Additional Health Concerns Infection Onset Date Last Indicated ESBL - Extended Spectrum Bet a-lactamase Comment:10/17/19 Urine (JJ) 12/08/19 Urine (JJ) 04/23/2020 04/23/2020 Insurance MEDICARE [facility] MEDICARE Advance Directives Documents on File Type Date Recorded Patient Senior Financial Expl anation Guardianship - Temporary 02/11/2021 11:14 AM * Full Code (Latest Code Status on File) Date Activated Date Inactivated Comments 11/27/2022 4:00 PM 03/13/2023 9:41 AM * Full Code Date Activated Date Inactivated Comments 11/22/2022 2:36 PM 11/23/2022 4:54 PM * Full Code Date Activated Date Inactivated Comments 11/21/2022 7:19 PM 11/22/2022 2:36 PM * Full Code Date Activated Date Inactivated Comments 10/04/2022 12:16 PM 10/05/2022 2:52 PM * Full Code Date Activated Date Inactivated Comments 09/05/2022 11:04 AM 09/06/2022 3:44 PM Care Teams Water Pump Servicer Relationship Specialty [place] [address] [place] [address] [place] [address] PCP - General FAMILY PRACTICE 12/14/23 Donis Eric MD [place] Remelt Pan Tank Operator CARDIOVASCULAR DISEASE 09/22/19
--- NOTE | 2025-01-15 13:51 | ECG_ITS ---
Test Date: 2025-01-15 14:12:55 Measurements Intervals [place] Rate: 61 P: 52 NE: 161 QRS: 29 QRSD: 80 T: 35 QT: 372 QTc: 378 Interpretive Statements SINUS RHYTHM DELAYED PRECORDIAL R/S TRANSITION BORDERLINE ECG No previous ECG available for comparison Electronically Signed On 01-15-2025 15:57:50 CDT by Eagle Urbina D.O.
[2025-01-15 14:27] LABS: Hematocrit 34.6 % (37.0-47.0); Mean Corpuscular HGB Conc 31.8 g/dl (32-36); Mean Corpuscular Hemoglobin 31.1 pg (26-34); Mean Corpuscular Volume 97.7 fl (80-100); Mean Platelet Volume 10.4 fl (7.4-10.4); Platelet Count Result 275 k/mm3 (150-375); Red Blood Count 3.54 M/mm3 (4.2-5.4); Red Cell Distribution Width 13.1 % (11.5-14.5); White Blood Count 9.2 K/mm3 (4.5-10.0)
[2025-01-15 14:41] LABS: Partial Thromboplastin Time 29.3 Seconds (22.3-36.8); Prothrombin Time 13.5 Seconds (11.1-14.7)
[2025-01-15 14:49] LABS: Add Urine Microscopic? YES; Appearance Urine Clear (Clear); Bacteria Urine None Seen /hpf; Bilirubin Urine Negative (Negative); Blood Urine Negative (Negative); Color Urine Yellow (Yellow); Glucose Urine UA Negative (Negative); Hyaline Casts Urine Present /lpf; Ketones Urine Negative (Negative); Leukocyte Esterase Ur Trace LEU/UL (Negative); Need Manual Microscopic Reviewed; Nitrate Urine Negative (Negative); Protein Urine Negative (Negative); RBC Urine 0-2 /hpf (0-2); Specific Grav Ur 1.018 (1.001-1.035); Squamous Epithelial Cell Urine Occasional /hpf (Few); Urobilinogen Urine 0.2 mg/dL (<2.0); WBC Urine 0-5 /hpf (0-3)
[2025-01-15 14:52] LABS: Hemoglobin A1C 5.8 % (<5.7)
[2025-01-15 15:03] LABS: Anion Gap 9 mmol/L (4-12); Blood Urea Nitrogen 23 mg/dL (7-17); Calcium 9.3 mg/dL (8.4-10.2); Carbon Dioxide 26 mmol/L (22-30); Chloride 106 mmol/L (98-107); Estimated Glomerular Filt Rate 44; Potassium 4.1 mmol/L (3.4-5.0); Sodium 141 mmol/L (137-145)
[2025-01-19 08:33] LABS: Glucose 54 mg/dL (65-110)
== END 2025-01-15 12:27 | disposition home or self-care (01) ==
LOC: ANHSURGERY 12:31
PROVIDERS: PCP Family Medicine; Visit Provider Neurological Surgery
DX: Z01.818 Encounter for other preprocedural examination (principal); R94.31 Abnormal electrocardiogram [ECG] [EKG]; M51.26 Other intervertebral disc displacement, lumbar region; M48.07 Spinal stenosis, lumbosacral region; I10 Essential (primary) hypertension; E11.9 Type 2 diabetes mellitus without complications
CPT/HCPCS: 36415; 80048; 81001; 83036; 85027; 85610; 85730; 93005

== ENCOUNTER 2025-01-27 00:49 | Day surgery (SDC) | payer MEDICARE, OTHER, SELFPAY ==
[2025-01-15 13:02] VITALS: BP 127/53; PULSE 66; RESP 16; TEMP 36.5; O2SAT 97; BMI 25.0
--- NOTE | 2025-01-15 13:29 | PC.NURSE ---
Report to the Outpatient Waiting Room, entrance under the green pavilion located off [facility], at time _0600am on date ___01/27/25____. Planned Procedure Time: _0730am .? Time changes happen often and if your time is changed the preop area will call you the afternoon before. - You and your visitor will be asked to self-screen and do not enter if you have any COVID symptoms. Please call surgeon if you need to reschedule. - A mask is optional within the hospital at this time. Patients may have clear liquids (water, carbonated beverages, clear teas, apple juice) until 3 hours prior to surgery with a maximum of 20 ounces. - No food from midnight until time of surgery and no smoking, or chewing tobacco (or any form of nicotine). No chewing gum, candy or mints. (0430am) Take only the following medications with a SIP of water on the morning of surgery: Hydrocodone if needed DO NOT STOP ANY OF YOUR OTHER PRESCRIPTION MEDICATIONS PRIOR TO SURGERY EXCEPT THE FOLLOWING Hold all vitamins and supplements for 3 days per anesthesiologist. Date to take last dose__01/23/25 Medications to discontinue per physician __None Date to take last dose None Please no make-up, nail uzbek, hairspray, perfume, deodorant, or body powder the day of surgery.? No jewelry (including any body piercings) or valuables the day of surgery, leave them at home.? Please take a shower or bath the night before, or the morning of, surgery with an antibacterial soap.? Wear comfortable, loose fitting clothing.? - Jewelry must be removed prior to entering the operating room.? Rings and piercings that are not removed may be cut off. - The hospital will not accept responsibility for valuables.? - Please leave all valuables, including medications, at home the day of surgery. If you are going home after surgery, a licensed driver's license examiner must drive you home.? - NO public transportation without another adult if you receive anesthesia. - We recommend that an adult stay with you for 24 hours following discharge. - We also recommend that you do not drive, make important decision, drink alcoholic beverages, or take any drugs that were not prescribed by your health care provider for at least 24 hours after your discharge time. Follow any additional instructions given to you from your surgeon. Telephone instructions given to __Patient and asked if any additional questions and then verbalized understanding. Patient advised to call surgeon office or pre surgery nurse liaison [phone] if any additional questions.
[2025-01-27] VITALS (14 sets, daily range): BP systolic 116–158; BP diastolic 47–91; PULSE 66–81; RESP 12–18; TEMP 36.1–36.9; O2SAT 92–100
--- NOTE | ~2025-01-27 | XR_ITS ---
INTRAOPERATIVE FLUOROSCOPY: CLINICAL HISTORY: 89 years old Female; RIGHT L1-L2, L2-L3 MICROLUMBAR DISKECTOMY PROCEDURE COMMENTS: Limited intraoperative fluoroscopy of the lumbar spine was performed. CUMULATIVE DOSE: 2.19 mGy FLUOROSCOPY TIME: 2 seconds FINDINGS/IMPRESSION: Please refer to operative note for further details. Reviewed, dictated and finalized at location A.
--- OUTSIDE RECORDS SUMMARY | 2025-01-27 00:53 | XMS_ITS | Encounter Summary ---
Author Organization [facility] Address [address] [place] [address] Care Team Providers Care Daylight Driller Name Role Phone Young Shaikh MD Primary Care Provider [phone] Sreekanth Donovan MD Unavailable Unavailable Donis Eric MD Unavailable [phone] Contreras Sanchez MD Primary Care Provider [phone] Zeyad Chacon MD Primary Care Provider [phone] Encounter Details Date Type Department Care Team (Late st Contact Info) Description 03/22/2019 Abstract SFL CONVERSION [address] [place] [address] , Generic Conversion, Social History [...] Rule Out 11/06/2020 11/06/2020 11/07/2020 1:55 PM PRINTED CIRCUIT BOARD PREASSEMBLER COVID-19 Rule Out 02/04/2021 02/04/2021 02/05/2021 8:40 PM CDT COVID-19 Rule Out 02/10/2021 02/10/2021 02/10/2021 10:24 AM CDT COVID-19 Rule Out 01/28/2022 01/28/2022 01/28/2022 7:03 PM CDT COVID-19 Rule Out 06/05/2022 06/05/2022 06/05/2022 12:55 PM CDT COVID-19 Rule Out 06/14/2022 06/14/2022 06/14/2022 7:22 PM CDT COVID-19 Rule Out 10/15/2023 10/15/2023 10/15/2023 11:13 AM PRINTED CIRCUIT BOARD PREASSEMBLER COVID-19 Rule Out 12/14/2023 12/14/2023 12/14/2023 2:04 PM PRINTED CIRCUIT BOARD PREASSEMBLER documented as of this encounter Care Teams Daylight Driller Relationship Specialty Start Date End Date Young Shaikh MD [address] [place] [address] PCP - General FAMILY PRACTICE 11/23/17 09/04/22 Contreras Sanchez MD [address] [place] [address] PCP - General FAMILY PRACTICE 09/05/22 12/13/23 [place] [address] PCP - General FAMILY PRACTICE 12/14/23 Sreekanth Donovan MD [address] [place] [address] INTERVENTIONAL CARDIOLOGY 10/31/18 09/21/19 Donis Eric MD [address] [place] [address] [place] Senior Network Security Architect CARDIOVASCULAR DISEASE 09/22/19 documented as of this encounter
--- OUTSIDE RECORDS SUMMARY | 2025-01-27 00:53 | XMS_ITS | Clinical Summary ---
Author Organization [facility] Address [address] [address] [place] [address] Phone Care Team Providers Care Solid Fiber Paster Operator Name Role Phone Young Shaikh MD Primary [...] Comments Blood Pressure 128/70 09/18/2016 10:50 AM FOREIGN TRADE TEACHER Pulse - - Temperature - - Respiratory Rate - - Oxygen Saturation - - Inhaled Oxygen Concentration - - Weight 73.9 kg (163 lb) 09/18/2016 10:50 AM FOREIGN TRADE TEACHER Height 165.1 cm (5' 5 ) 09/18/2016 10:50 AM FOREIGN TRADE TEACHER Body Mass Index 27.12 09/18/2016 10:50 AM FOREIGN TRADE TEACHER Plan of Treatment Health Maintenance Due Date [...] age to complete this topic Insurance MEDICARE [facility] Care Teams Solid Fiber Paster Operator Relationship Specialty Start Date End Date Young Shaikh MD [address] [place] [address] PCP - General Family Medicine 09/18/16
--- OUTSIDE RECORDS SUMMARY | 2025-01-27 00:53 | XMS_ITS | Data Portability ---
Author Organization [facility], [address] [place] [address] ([place]) Address [address] [address] Care Team Providers Care Zoo Director Name Role Phone DAVID RUSS Primary Care [...] patient is amenable to the plan. cbg [email or web address] Not available 02/18/2024 09:54:31 04/09/2024 04/09/2024 The [...] if that doesn't resolve then call the office/specifications checker number provided. If pathology was sent, the patient will be called with this information as soon as it is available and has been interpreted by Dr. Steele. The patient was advised to call if any questions or concerns arise such as: fever/chills, spreading redness, severe pain and/or fever over 100.5 [email or web address] Not available 04/09/2024 14:27:39 04/16/2024 04/16/2024 Pt [...] [facility] [address],[place] [address] Ph. [phone] Russ Cueva MD, PhD, Medic al Direc tor DIETR NIKHIL MAN , CHRISTINE MANZANO Patie nt: PRASAD YAORenu Marrero e ID: [id number] Repor t Statu s: Final :0 1934 Case #: [id number] Age: 88 Y Gende r: F Date Colle cted: 02/07 MRN # : [id number] Date Recei adán: 02/07 Repor loco Date: 02/10 FINAL DIAGN OSIS: Skin, right exten sor forea rm, shave biops y : - Sebor rheic kerat osis, infla med ICD-1 0: L82.0 Elect farhana Zuñiga ied by Yesica Newell MD Elect farhana melvin 02/10 15:01 [...] tted for histo logic study in two [facility] ttes. CLINI CLINT INFOR MATIO N: Skin biops y, right exten sor forea rm, IK vs NMSC. Not Available In Only - In Laboratory [address] [place] [address], [address], 02/11/2024 16:04:03 02/08/20 24 02/08/2024 biops y, tissu e tissue exam biopsy [facility] clini [address] ,[facility] [place] [address] pH. [phone] russ cueva md, phd, medic al dire tor dietr christine werner md patie nt: maira parham id: [id number] repor t statu s: final :0 1934 case #: [id number] age: 88 Y gende r: F date colle cted: 02/07 mrn # : [id number] date recei adán: 02/07 repor loco [...] , seria lly secti oned, and entir ebverly submi tted for histo logic study in two facklere ttes. clini clint infor matio n: skin biops y, right exten sor forea rm, ik vs nmsc. ----- Not Available Not Available 10/15/2024 19:07:29 02/15/20 24 02/19/2024 surgi clint patho logy study tissue exam biopsy [facility] [address],[facility] [place] [address] Ph. Russ Cueva MD, PhD, Medic al [facility] CO[facility]R EMELY ADAIR MD Patijosh nt: PRASAD YAORenu Marrero e ID: [id number] Repor t Statu s: Final :0 1934 Case #: [id number] Age: 88 Y Gende r: F Date Colle cted: 02/14 MRN # : [id number] Date Recei adán: 02/14 Repor loco [...] nodul ar infil trati ve. Not Available In Only - In Laboratory [address] [place] [address], [address], 02/19/2024 12:12:57 02/15/20 24 02/15/2024 biops y, tissu e tissue exam biopsy [facility] [address],[facility] [place] [address] pH. russ cueva md, phd, medic al direc tor cochemely ferrera md patijosh nt: maira parham sampl e id: [id number] repor t statu s: final :0 1934 case #: [id number] age: 88 Y gende r: F date colle cted: 02/14 mrn # : [id number] date recei adán: 02/14 repor loco [...] [facility] [address] [facility] [address],[place] [address] Ph. [phone] Russ Cueva MD, PhD, Medic al Direc tor COCHR ANEMELY MD Patie nt: MAIRA PARHAM e ID: [id number] Repor t Statu s: :0 1934 Case #: [id number] Age: 88 Y Gende r: F Date Colle cted: 04/09 MRN # : [id number] Date Recei adán: 04/09 Repor loco [...] Not Available Sc Only - Sc Laboratory [address] [place] [address], [address], 04/11/2024 16:13:46 Result Notes None recorded. 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 006488088 [facility] 4 19:34:42 Seborrheic keratosis 241844944 Active 2023 Dori Matt [facility] 4 12:46:20 Lentiginosi s 559819786 Active 2023 Dori Matt [facility] 4 12:46:24 Inflamed seborrheic keratosis 957040999 [facility] 2023 Dori Matt [facility] 4 12:47:46 Primary basal cell carcinoma of left ear 9507485917856 105 Active 2023 [facility] 4 10:52:59 Basal cell carcinoma of skin 342592558 Active 2023 [facility] 4 10:48:53 Problem Notes None recorded. Medical Equipment None Reported. Allergies Allergen ID Allergen Name Allergen Category Reaction Reaction Severity Criticality Documentation Date Start Date Code Code System Note Provider Name and Address Organization Details Recorded Time 180947 Substance with sulfonami de structure and antibacte rial mechanism of action (substanc e) medicatio n vomiting Not available Not available 11/12/20232013 81194 8003 SNOMED React ion: Vomit ing; Not Available Not Available Not Available 797965 Augmentin medicatio n Not available Not available Not available 11/12/20232018 99258 2 RxNorm Not Available Not Available Not [...] Updated DateTime 02/15/2024 167.64 cm 24.7 kg/m2 60265.63 g Rosio Villaltaalexus [facility] 02/15/2024 11:23:14 Date Recorded Body height Body mass index (BMI) Body weight Provider Name and Address Organization Details Last Updated DateTime 04/09/2024 167.64 cm 24.7 kg/m2 38104.63 g Savanna Briones [facility] 04/09/2024 12:02:26 Date Recorded Body height Provider Name an d Address Organization Details Last Updated DateTime 08/12/2024 167.64 cm Dori Gutierrez [facility] 08/12/2024 12:39:43 Social History None recorded. Functional Status None recorded. Mental Status None recorded. Family History Nothing Reported. Medical History No medical history recorded. Gynecological HistoryNo gynecological history recorded. Obstetrics History GPAL:G 0 P 0 0 0 0 Past Encounters Encounter ID Performer Location Encounter Start Date Encounter Closed Date Diagnosis/Indication Diagnosis SNOMED-CT Code Diagnosis ICD10 Code Diagnosis Note [id number] Dori Steele MD [facility] ([place]) [address] [place] [phone] 01/18/2024 11:43:36 01/18/2024 13:59:34 Basal cell carcinoma of postauricular skin 098452618 C44.41 [id number] Dori Steele MD [facility] [place]) [address] [place] [phone] 02/15/2024 10:53:39 02/15/2024 12:11:11 Primary basal cell carcinoma of left ear 2448221097 624038 C44.715 [id number] Kennedi Vora [facility] [employer] ([place]) [address] [place] [phone] 5 02/28/2024 11:32:43 02/28/2024 12:01:47 Primary basal cell carcinoma of left ear [id number] 173006 C44.219 Pt presents to clinic today for suture removal from left post ear. Sutures were cleaned with alcohol wipe and removed in typical fashion. Sutures were clean, dry, and intact upon removal. Pt tolerated removal well and without complicati ons. Bacitracin was applied to site. Pt was given scar care sheet and instructed to call with any questions/ concerns. [id number] Dori Steele MD [facility] ([place]) [address] [place] [address] [phone] 04/09/2024 11:52:59 04/09/2024 14:06:11 Basal cell carcinoma of skin 196400727 C44.367 [id number] Jaqui Kim [facility] [employer] ([place]) [address] [place] [address] [phone] 04/16/2024 14:37:35 04/17/2024 07:06:48 [id number] Christine Bell MD [facility] ([place]) [address] [place] [address] 08/12/2024 12:12:29 08/12/2024 12:56:42 History of malignant neoplasm of skin excluding melanoma 114143953 Z85.828 History of {{melanoma . Recall in [...] SPF thirty or higher. Seborrheic keratosis 394 259459 L82.1 {{Hemangio ma Hemangi omas Sebor rheic keratosis Seborrheic keratoses* Acrochord on Acrocho mold finisher Sebace ous hyperplasi a Telangie ctasia Tel [...] Post-treat ment instructio ns were discussed. Lentiginosis 492470049 L 81.4 We discussed the fact that lentigines are actinicall y induced and that they are benign. We discussed the fact that they should be watched carefully for change. We discussed the importance of photoprote ction using protective clothing and sunscreen with SPF fifteen or higher on a regular basis. Inflamed s eborrheic keratosis 126820758 L82.0 {{Irritate d seborrheic keratosis* Irritated skin [...] 02/15/2024 1 [place] [facility] [id number] [facility] 02/15/2024 2 [facility] [id number] P[facility] Day [id number] P[facility]y [facility] Day 02/28/2024 1 [place] [facility] [id number] Pansy J Day 02/28/2024 2 [facility] [id number] P[facility] Day [id number] P[facility]y [facility] Day 04/09/2024 1 [place] [facility] [id number] P[facility]y J Day 04/09/2024 2 [facility] [id number] P[facility]y [facility] Day [id number] P[facility]y J Day 04/16/2024 1 [place] [facility] [id number] Pansy J Day 04/16/2024 2 [facility] [id number] P[facility]y J Day [id number] P[facility]y J Day 08/12/2024 1 [place] [facility] [id number] Pansy J Day 08/12/2024 2 [facility] [id number] Pansy J Day [id number] Pansy J Day Notes Date Note Type [...] arm Other concerns: right cheek and right rastafari Regular use of sunscreen with SPF 15 or greater: {{Yes No*}}Regular use of protective clothing: {{Yes No*}}Regular performance of self skin examinations: {{Yes* No}}Major change in health status since last visit: {{Yes No*}} Christine Bell MD [address] [place] [address], [phone], [facility] 08/12/2024 13:01:37 OBGyn Episode No OBEpisode recorded.
--- OUTSIDE RECORDS SUMMARY | 2025-01-27 00:53 | XMS_ITS | Clinical Summary ---
Author Organization [facility] Address [address] [place] [address] Care Team Providers Care Kindergarten Assistant Name Role Phone Donis Eric MD Unavailable Zeyad Chacon MD Primary Care Provider [phone] Allergies Active Allergy Reactions Criticality Noted Date [...] 1 G tablet 3 Active SOFTCLIX LANCETS [facility] USE 1 LANCET TO TEST BLOOD GLUCOSE [...] 06/09/2022 Overview (06/09/2022): MRSA in urine at [facility] approx 5 years ago; has had a Negative nasal culture 03/07/19 Trochanteric bursitis of right hip 04/27/2021 Lumbar back pain 04/06/2021 Radiculopathy, lumbar region 01/07/2021 Recurrent urinary tract infection 11/02/2020 Overview (11/02/2020): Added automatically from request for surgery [id number] Urinary incontinence 04/26/2020 Primary osteoarthritis of right [...] Knee pain 02/08/2017 Cystocele 09/22/2016 Diabetes mellitus ([facility]) 09/01/2013 Resolved Problems Problem Noted Date [...] declined 11/21/2022 How often do you attend faith or adventism serv ices? Patient declined 11/21/2022 Active Member [...] Recorded Patient Health Questionnaire-2 Score 0 11/21/2022 [facility] - Occupational Stress [...] place to sleep or slept in a nursing home (including now)? Patient refused 11/21/2022 Comments No [...] - 1-dose 75+ series) 2011 Pneumococcal Vaccine: 50+ Years (2 of 2 - PPSV23 or PCV20) 03/15/2017 01/18/2017 Zoster Vaccines (2 of 2) 12/13/2020 10/18/2020 COVID-19 Vaccine ( season) 2024 08/10/2022, 07/05/2021, 12/24/2020, Additional history exists Hemoglobin A1C 03/20/2025 09/19/2024, 03/15, 09/14/2023, Additional history exists Lipid Panel 03/25/2025 [...] in ADLs upon discharge from hospital Lifestyle Gayathri Manzano, RN Patient will return to prior living situation and remain independent in ADLs upon discharge from hospital Lifestyle Gayathri Manzano RN Safety Patient/family will have appropriate support at home upon discharge Lifestyle No Radha Herrera RN Medical Devices Implanted Type Area Cullet Washer Device Identifier Shelf Expiration Date Model / Serial / Lot Graft Bone Bonus Triad Cancellous Cortical 1cc Allograft - [id number] Implanted:Qty: 1 on 02/07/2021 by Young Lees MD at [facility] Bone N/A: Spine Lumbar [employer] 07/22/2025 [id number] / [id number] / NA Sling Advantage Fit Mid-Urethral Transvaginal - [id number] Implanted:Qty: 1 on 04/26/2020 by Miles Wallis MD at [facility] N/A: Urinary Bladder [employer] MAVIS 10/20/2022 [id number] / / [id number] Set Screw Implanted:Qty: 4 on 02/07/2021 by Young Lees MD at [facility] N/A: Spine Lumbar NEW AGE MEDICAL [id number] / / NA 5.5 X 30 Mm Mis Avtar Implanted:Qty: 1 on 02/07/2021 by Young Lees MD at [facility] N/A: Spine Lumbar NEW AGE MEDICAL [id number] / / NA 6.5 X 45 Mm Cortical Polyaxial Screw Implanted:Qty: 4 on 02/07/2021 by Young Lees MD at [facility] N/A: Spine Lumbar NEW AGE MEDICAL [id number] / / NA F3d Straight, 34 Mm X 10 Mm-0 Degree 12 Mm Implanted:Qty: 1 on 02/07/2021 by Young Lees MD at [facility] N/A: Spine Lumbar 10/19/2027 [id number] / / [id number] Description:CORELINK 5.5 X 35 Mm Mis Avtar Implanted:Qty: 1 on 02/07/2021 by Young Lees MD at [facility] N/A: Spine Lumbar NEW AGE MEDICAL [id number] / / NA Explanted Type Area Cullet Washer Device Identifier Shelf Expiration Date Model / Serial / Lot 1.4 Mm Guide Wire Explanted:Qty: 1 on 02/07/2021 by Young Lees MD at [facility] N/A: Spine Lumbar NEW AGE MEDICAL NAM-GUIDEW KEREN-SS-SHANNON NT 1.4 / / NA Procedures Procedure Name Priority Date/Time Associated Diagnosis Comments HEMOGLOBIN, GLYCOSYLATED Routine 09/19/2024 10:12 AM COUNTY SURVEYOR Diabetes mellitus type 2, controlled ([facility]) LIPID PANEL Routine 03/25/2024 9:04 AM CDT Type 2 diabetes mellitus without complication, without long-term current use of insulin from Last 3 Months or Most Recently Relevant to Health Maintenance Results * (ABNORMAL) HEMOGLOBIN, GLYCOSYLATED (09/19/2024 10:12 AM COUNTY SURVEYOR) HGB A1C 5.8(H) <5.7 % 09/20/2024 4:[address] [facility] ESTIMATED AVG GLUCOSE 120(H) 74 - 114 MG/DL 09/20/2024 4:[address] [facility] 09/19/2024 10:1 2 AM COUNTY SURVEYOR us Zeyad Chacon MD LABORATORY Final Result [facility] [address] [place] [id number], [id number] * LIPID PANEL (03/25/2024 9:04 AM CDT) CHOLESTEROL 130 MG/DL 03/25/2024 12:[address] [facility] Comment:DESIRABLE: <200 TRIGLYCERIDES 74 MG/DL 03/25/2024 12:[address] [facility] Comment:<150 NORMAL HDL 50 >49 MG/DL 03/25/2024 12:[address] [facility] LDL-C 65 MG/DL 03/25/2024 12:[address] [facility] Comment:<100 OPTIMAL VLDL CALCULATION 15 MG/DL 03/25/20 24 12:[address] [facility] Comment:REFERENCE RANGE NOT ESTABLISHED CHOL/HDL RATIO 2.6 03/25/2024 12:[address] [facility] Comment:REFERENCE RANGE NOT ESTABLISHED LDL/HDL 1.3 03/25/2024 12:[address] [facility] Comment:REFERENCE RANGE NOT ESTABLISHED NON HDL CHOLESTEROL 80 MG/DL 03/25/2024 12:[address] [facility] Comment:REFERENCE RANGE NOT ESTABLISHED 03/25/2024 9:04 AM CDT Zeyad Chacon MD LABORATORY Final Result [facility] [address] [place] [address], [id number] from Last 3 Months or Most Recently Relevant to Health Maintenance Additional Health Concerns Infection Onset Date Last Indicated ESBL - Extended Spectrum Bet a-lactamase Comment:10/17/19 Urine (JJ) 12/08/19 Urine (JJ) 04/23/2020 04/23/2020 Insurance MEDICARE [facility] MEDICARE Advance Directives Documents on File Type Date Recorded Patient Data Services Developer Expl anation Guardianship - Temporary 02/11/2021 11:14 [...] 11:04 AM 09/06/2022 3:44 PM Care Teams Kindergarten Assistant Relationship Specialty Start Date End Date Zeyad Chacon MD [address] [facility] [place] [address] PCP - General FAMILY PRACTICE 12/14/23 Donis Eric MD [employer] Research Coordinator CARDIOVASCULAR DISEASE 09/22/19
[2025-01-27] MEDS: LACTATED RINGERS 1,000 ML 30 ML IV CONT ×2 (06:30→09:57)
[2025-01-27 06:49] LABS: Glucose Point of Care 100 mg/dl (65-105)
--- NOTE | 2025-01-27 07:14 | WPDANESEPPF ---
Anes - Initial Pre Proc Eval Procedure: Operation Date: 01/27/25 07:30 Proposed Procedures p Right L1- L2, L2-L3 Microlumbar Discectomy - Roger Bello MD Date/Time: 01/27/25 07:14 Surgeon: Roger Bello MD Pre Op Diagnosis: rt. L1-2, L2-3 herniated nucleus pulposus Patient Data Age: 89 Gender: F Height: 1.63 m Weight: 66 kg Last Vital Signs Temp 36.5 C 01/15/25 13:02 Pulse 66 01/15/25 13:02 Resp 16 01/15/25 13:02 BP 127/53 L 01/15/25 13:02 Pulse Ox 97 01/15/25 13:02 O2 Del Method Room Air 01/15/25 13:02 Allergies Allergy/AdvReac Type Severity Reaction Status Date / Time amoxicillin (From Augmentin) AdvReac Intermediate Gastrointestinal Verified 01/27/25 06:53 Upset clavulanic acid (From AdvReac Intermediate Gastrointestinal Verified 01/27/25 06:53 Augmentin) Upset Home Medications ?Medication ?Instructions ?Recorded ?Confirmed ?Type cevimeline 30 mg capsule 1 cap PO ONCE 02/02/21 01/15/25 History glipizide 5 mg tablet 5 mg PO DAILY 02/02/21 01/27/25 History pantoprazole 40 mg tablet,delayed 40 mg PO QAM 02/02/21 01/15/25 History release simvastatin 5 mg tablet 5 mg PO DAILY 02/02/21 01/27/25 History acetaminophen 2 cap PO .as needed PRN pain 12/25/23 01/27/25 History ascorbate calcium (vitamin C) 500 500 mg PO DAILY 12/25/23 01/27/25 History mg tablet bisacodyl 2 tablet PO DAILY PRN constipation 12/25/23 01/15/25 History lisinopril 10 1 tablet PO DAILY 12/25/23 01/27/25 History mg-hydrochlorothiazide 12.5 mg tablet potassium chloride 10 mEq 10 meq PO DAILY 12/25/23 01/27/25 History tablet,extended release (Klor-Con) vit C 250 mg-vit E 90 mg-zinc 40 2 tablet PO .QD 12/25/23 01/27/25 History mg-copper 1 no-ihnwyr-vinfdy capsule (PreserVision AREDS-2) hydrocodone 7.5 mg-acetaminophen 1 tablet PO Q6H PRN pain 01/15/25 01/27/25 History 325 mg tablet nitrofurantoin 100 mg PO DAILY 01/15/25 01/15/25 History monohydrate/macrocrystals 100 mg capsule Laboratory Tests 01/27/25 06:38 POC Capillary Glucose 100 mg/dl (65-105) Patient hx anesthesia problems: none Family hx anesthesia problems: none Results Review: All pre-operative results and documents have been reviewed as part of the pre-operative evaluation. [facility] Past Medical History Medical History GERD (gastroesophageal reflux disease) Hypertension Diabetes Arthritis Family History Family History Father Heart disease Mother Hypertension Heart disease Sibling Cancer Diabetes mellitus Hypertension Heart disease Social History Social History Social History: Caffeine-none Smoking packs per day: 1 Smoking cigarettes per day: 20.0 Years smoked: 25 Smoking pack-years: 25.00 Smoking status: Never smoker Smoking end date: 10/15/89 Alcohol intake: never Substance use: never Substance use type: does not use Do You Feel Safe in your Home?: Yes Lack of Transportation: No Lack of Food: Never True Current Housing: I Have Housing Concerned About Future Housing: No Difficulty Paying Gas/Electric Bills: No Difficulty Paying for Meds: No Difficulty w/ Childcare or Family Care: No Living arrangements: alone Spiritual care concerns: No Anes - Eval Final PreProcedure Day of Procedure 01/27/25 07:14 Patient weight: normal Heart: regular rate and rhythm Lungs: clear to auscultation Airway: Mallampati scale class II Neurological: alert and oriented Last oral intake: >/= 8 hours ASA classification: III Emergent: no Anesthetic plan: proceed Anesthesia type and monitoring: general ETT and standard monitoring Results Review: All pre-operative results and documents have been reviewed as part of the pre-operative evaluation. Informed Consent: The patient's anesthetic plan and its attendant risks and benefits were discussed with the patient/family/POA. Questions were solicited and answers provided to the satisfaction of the patient/family/POA.
[2025-01-27 07:32] LABS: Glucose Point of Care 104 mg/dl (65-105)
--- NOTE | 2025-01-27 07:49 | P.HP_ITS ---
H&P: HPI History of Present Illness Date/Time: 01/27/25 07:49 Chief Complaint: Back and leg pain Narrative: Ms. Huertas persists in having right-sided low back pain that radiates into her buttock area and into the proximal right lower extremity. She does not note specific muscle group weakness or dermatomal numbness today. She underwent diagnostic and therapeutic injections in the spine and SI joint without obta ining any specific data. She has been cleared for surgery by her primary care physician but given her advanced age we are attempting to limit the scope of that operation. She is very negative about the prospect of dorsal column stimulation. Her pain is severe and limiting for her. It is worse with activity especially upright posture and walking. She has not having new bowel or bladder difficulty. Review of Systems Review of Systems: All systems reviewed & are unremarkable except as noted in HPI and below Denies chills, Denies fever(s), Denies weakness, Denies weight gain and Denies weight loss Eyes Denies change in vision and Denies diplopia ENT Denies neck pain and Denies disequilibrium Card Denies chest pain and Denies dyspnea Resp Denies cough and Denies dyspnea GI Denies abdominal pain, Denies change in bowel habits, Denies fecal incontinence and Denies vomiting Denies hematuria, Denies oliguria, Denies difficulty urinating, Denies dysuria, Denies urinary frequency, Denies urinary hesitancy, Denies urinary incontinence and Denies urinary urgency Musc Reports as per HPI, Reports back pain, Denies muscle weakness, Denies neck pain, Reports numbness and Denies stiffness Skin/ Breast Reports system reviewed and no additional complaints, except as documented Neuro Reports as per HPI, Denies burning sensations, Denies focal weakness, Reports numbness, Denies Other visual disturbances, Reports radicular pain, Reports paresthesias, Denies disequilibrium and Denies weakness Psych Reports no additional complaints, Denies depression and Denies hopelessness Endo Reports no additional complaints and Denies polyuria Benito/ Lymph Reports no additional complaints Aller/ Immun Reports no additional complaints PMFSH Past Medical History Medical History GERD (gastroesophageal reflux disease) Hypertension Diabetes Arthritis Family History Family History Father Heart disease Mother Hypertension Heart disease Sibling Cancer Diabetes mellitus Hypertension Heart disease Social History Social History Social History: Caffeine-none Smoking packs per day: 1 Smoking cigarettes per day: 20.0 Years smoked: 25 Smoking pack-years: 25.00 Smoking status: Never smoker Smoking end date: 10/15/89 Alcohol intake: never Substance use: never Substance use type: does not use Do You Feel Safe in your Home?: Yes Lack of Transportation: No Lack of Food: Never True Current Housing: I Have Housing Concerned About Future Housing: No Difficulty Paying Gas/Electric Bills: No Difficulty Paying for Meds: No Difficulty w/ Childcare or Family Care: No Living arrangements: alone Spiritual care concerns: No Meds Home Medications and Allergies Home Medications ?Medication ?Instructions ?Recorded ?Confirmed ?Type cevimeline 30 mg capsule 1 cap PO ONCE 02/02/21 01/15/25 History glipizide 5 mg tablet 5 mg PO DAILY 02/02/21 01/27/25 History pantoprazole 40 mg tablet,delayed 40 mg PO QAM 02/02/21 01/15/25 History release simvastatin 5 mg tablet 5 mg PO DAILY 02/02/21 01/27/25 History acetaminophen 2 cap PO .as needed PRN pain 12/25/23 01/27/25 History ascorbate calcium (vitamin C) 500 500 mg PO DAILY 12/25/23 01/27/25 History mg tablet bisacodyl 2 tablet PO DAILY PRN constipation 12/25/23 01/15/25 History lisinopril 10 1 tablet PO DAILY 12/25/23 01/27/25 History mg-hydrochlorothiazide 12.5 mg tablet potassium chloride 10 mEq 10 meq PO DAILY 12/25/23 01/27/25 History tablet,extended release (Klor-Con) vit C 250 mg-vit E 90 mg-zinc 40 2 tablet PO .QD 12/25/23 01/27/25 History mg-copper 1 nn-hcanhg-dlraov capsule (PreserVision AREDS-2) hydrocodone 7.5 mg-acetaminophen 1 tablet PO Q6H PRN pain 01/15/25 01/27/25 History 325 mg tablet nitrofurantoin 100 mg PO DAILY 01/15/25 01/15/25 History monohydrate/macrocrystals 100 mg capsule Allergies Allergy/AdvReac Type Severity Reaction Status Date / Time amoxicillin (From Augmentin) AdvReac Intermediate Gastrointestinal Verified 01/27/25 06:53 Upset clavulanic acid (From AdvReac Intermediate Gastrointestinal Verified 01/27/25 06:53 Augmentin) Upset Vital Signs Vital Signs - 24 hr 01/27/25 07:13 Temperature 97.8 F Pulse Rate 66 Respiratory Rate 16 Blood Pressure 134/55 L Pulse Oximetry 100 Oxygen Delivery Room Air Exam Narrative: General: cooperative, no acute distress, well developed, alert and awake Orientation/Consciousness: oriented to person, oriented to place and oriented to time Constitutional Limitations: no limitations Other: The patient is a normally developed, normal appearing female sitting on the examination table in no acute distress. He is awake, alert, and oriented x3 with good fund of knowledge, recall of events, and fluent speech. HENMT Head: normocephalic and atraumatic Ears: external ears normal Face/Nose/Sinus: Normal external nose present Eyes Eyelids: eyelids normal Pupils: Yes Pupils normal by confrontation EOM: EOMs intact bilaterally Neck General: Yes no meningeal signs, Yes supple and Yes no JVD Resp Effort/Inspection: normal respiratory effort and able to speak in complete sentences Cardio Rate: Yes regular rate GI Inspection: No abdominal distension Musc Other: Examination of the back reveals no tenderness. Range of motion of the back is limited in forward flexion, extension, and lateral rotation to both sides. Straight leg raise is negative bilaterally. Jae?s test is positive on the right for pain in the sacral area. Skin General: normal color Neuro General: Yes oriented to person, Yes oriented to place, Yes oriented to time, Yes normal cognition and Yes no meningeal signs Cranial Nerves: Yes CN's II-XII intact bilaterally Other: Motor: Strength is normal, 5/5, throughout all muscle groups of the bilateral lower extremities to direct confrontation. Sensory: Sensation is intact to light touch throughout the lower extremities bilaterally. Reflexes: Deep tendon reflexes are difficult to elicit the knees or ankles bilaterally. Gait: Gait, station, and transfers are independent and steady for short periods of time and over short distances. Psych Appearance: grossly normal Mental status: Yes mental status grossly normal Mood: congruent mood Affect: Yes normal affect Speech/Movement: Normal speech and movement present Attitude: Yes cooperative Thought Content: Normal thought content present Review of studies: MRI of the lumbar spine was personally reviewed by me. This demonstrates foraminal stenosis at L2-3 and L1-2 related to disc protrusion or herniation. There is also lateral recess stenosis on the right at L1-2 which could compress the traversing nerve root. There is stable appearing construct below. Assessment and Plan Assessment and plan (1) Foraminal stenosis of lumbosacral region: Code(s): M48.07 - Spinal stenosis, lumbosacral region Status: Acute (2) Lumbar disc herniation: Code(s): M51.26 - Other intervertebral disc displacement, lumbar region Status: Acute Plan while it is difficult to assign the blame for this problem on any specific offensive pathology, diagnostic information that could blame the SI joint is lacking. Advancing her fusion up 2 levels seems like a very large operation for this lady of advanced age. I had a long conversation with the patient and her daughter about the limits of our capabilities and potential outcomes of surgery given her clinical situation and advanced age. I am not willing to perform a large fusion operation as I believe she may have problems with recovering from that and make the surgery not worthwhile. While she is very negative about dorsal column stimulation it will be her only option if she fails with simple decompressive surgery which I am willing to do as it is specific and requires a short general anesthetic. I therefore described her and L1-2 and L2-3 far- lateral microscopic lumbar diskectomy with a right L1-2 hemilaminectomy, its risks, potential benefits, the operative and postoperative course in detail and answered all her questions personally. We discussed risks including but not limited to permanent neurologic deficit secondary to nerve root injury, need for reoperation secondary to infection, bleeding, CSF leak, adjacent level disease, recurrent or residual pathology or instability, failure of the procedure to relieve her pain or symptoms, persistent pain, medical complications related to anesthesia or surgery, etc.. She indicates understanding and elects to proceed with the operation.
--- NOTE | 2025-01-27 07:51 | WPDHPUPDATE1 ---
History and Physical Update Update Date/Time: 01/27/25 07:51 History and Physical has been reviewed, including an updated exam of the patient. There are NO changes in the patient's condition. Risks, benefits, and alternatives have been discussed and questions answered. Patient agrees to proceed with procedure.
[2025-01-27] MEDS: ceFAZolin 2 GM/D5W 50 ML 2 GM/50 ML BAG IVPB (08:18)
[2025-01-27] MEDS: LIDO 1%/EPINEPHRINE 1:100,000 50 ML VIAL 10 ML INFILTRATE (08:38)
--- NOTE | 2025-01-27 09:51 | P.OP_ITS ---
Procedure Note - Detailed Date of Procedure 01/27/25 Pre-op Diagnosis rt. L1-2, L2-3 herniated nucleus pulposus Post-op Diagnosis Same Procedure Performed Right L1-2 and L2-3 microscopic lumbar diskectomy Surgeon Roger Bello MD Anesthesia General Description of Procedure Patient was brought to the operating room in the supine position, was sedated, intubated placed under general anesthesia in routine fashion. She was then turned into the prone position on a Jayme frame. The operation her back was ex amined, marked for incision, prepped and draped in routine sterile fashion. Incision was marked over the L1 through 3 spinous processes in the midline. This area was injected with 0.5% lidocaine with [id number] epinephrine. Intravenous antibiotics given prior to incision. Incision was made with a 10 blade scalpel down to the lumbodorsal fascia. A subperiosteal dissection of the muscle and soft tissue away from spinous process and lamina at L1 through 3 on the right was performed with a subperiosteal elevator and Bovie cautery. A verifying x-rays obtained to verify the level of operation. At L1-2 and L2-3 Midas-Niraj drill was used to perform a hemilaminectomy and medial facetectomy. Under microscopy the yellow ligament was lifted removed piecemeal using Kerrison punches. This was done from superior to inferior. The thecal sac was retracted medially. The ligament was entered using 11 blade scalpel at both levels. An Jeffrey curette, curved curette and Whyte rongeur were used to push free and removed fragments of herniated disc from beneath the nerve both locations. This was done until a dental instrument could be placed in the lateral epidural space to confirm lack of compression. The wound was then copiously irrigated with bacitracin irrigation all bleeding stopped with bipolar and Bovie cautery and Gelfoam thrombin powder. The wound was then closed in layered fashion with 2-0 Vicryl interrupted sutures in the lumbodorsal fascia and Siva's layer. 3-0 Vicryl buried interrupted sutures were placed in the dermis and the skin was closed with a running 4-0 Monocryl subcuticular stitch and dressed with Dermabond. The patient was allowed to wake up in the operating room and was taken to the recovery room in stable condition. There were no immediate complications of this operation. All counts reported correct the end of the case. Blood loss was 25 cc. The patient was neurologically at her baseline postoperatively. CPT codes: 36813, 87328, 10979 Estimated Blood Loss 25 Complications None Condition Stable Disposition PACU [facility] Billing Surgery - Charge Forward: Surgery Billing
[2025-01-27] MEDS: fentaNYL CITRATE INJ (*CRX) 100 MCG/2 ML VIAL 25 MCG IV PUSH ×6 (09:52→10:41)
[2025-01-27 10:11] LABS: Glucose Point of Care 102 mg/dl (65-105)
[2025-01-27] MEDS: HYDROcodone/acetaminophen (*CRX) 10-325 MG TABLET 1 TAB PO (12:50)
[2025-01-27] MEDS: DOCUSATE SODIUM 100 MG CAPSULE PO (20:33)
[2025-01-27] MEDS: HYDROcodone/acetaminophen (*CRX) 5-325 MG TABLET 1 TAB PO (23:13)
[2025-01-28 01:05] VITALS: BP 137/56; PULSE 82; RESP 16; TEMP 37.4; O2SAT 96
[2025-01-28 04:35] VITALS: BP 155/54; PULSE 81; RESP 20; TEMP 36.6; O2SAT 95
[2025-01-28 07:52] VITALS: BP 146/46; PULSE 79; RESP 20; TEMP 35.7; O2SAT 95
[2025-01-28] MEDS: ASCORBIC ACID 500 MG TABLET PO (08:42)
[2025-01-28] MEDS: OPTI-GEN TAB 2 TABLET PO (08:42)
[2025-01-28] MEDS: DOCUSATE SODIUM 100 MG CAPSULE PO (08:42)
[2025-01-28] MEDS: POTASSIUM CHLORIDE 10 MEQ ER TABLET PO (08:42)
[2025-01-28] MEDS: lisinopriL 10 MG TABLET PO (08:42)
[2025-01-28] MEDS: NITROFURANTOIN MONOHYD MACROCR 100 MG CAP PO (08:42)
[2025-01-28] MEDS: glipiZIDE 5 MG TABLET PO (08:42)
[2025-01-28] MEDS: PANTOPRAZOLE 40 MG TABLET PO (08:42)
[2025-01-28] MEDS: SIMVASTATIN 5 MG TABLET PO (08:42)
[2025-01-28] MEDS: hydroCHLOROthiazide 12.5 MG CAPSULE PO (08:42)
== END 2025-01-28 11:30 | disposition home or self-care (01) ==
LOC: ANHSURGERY 05:48 → ANH3MEDSUR 11:00
PROVIDERS: PCP Family Medicine; Visit Provider Neurological Surgery
PROC: (CPT 63030; principal; 2025-01-27 07:30)
DX: M48.07 Spinal stenosis, lumbosacral region (principal); M51.26 Other intervertebral disc displacement, lumbar region; I10 Essential (primary) hypertension; E11.9 Type 2 diabetes mellitus without complications; K21.9 Gastro-esophageal reflux disease without esophagitis; M19.90 Unspecified osteoarthritis, unspecified site; Z79.84 Long term (current) use of oral hypoglycemic drugs; Z79.891 Long term (current) use of opiate analgesic; Z87.891 Personal history of nicotine dependence; Z80.9 Family history of malignant neoplasm, unspecified; Z82.49 Family history of ischemic heart disease and other diseases of the circulatory system
CPT/HCPCS: 63030; 63035; 82948; 94667; 97116; 97161; 97165; 97530; 97535; 99199; A9270; J0690; J1100; J1171; J2003; J2004; J2371; J2405; J2704; J3010; J7120

== ENCOUNTER 2025-06-04 13:15 | Outpatient (CLI) | payer MEDICARE, OTHER, SELFPAY ==
--- NOTE | ~2025-06-04 | MR_ITS ---
MRI of the lumbar spine Clinical History: Degenerative disc disease Technique: Axial T2-weighted images, and sagittal T1-weighted, T2-weighted, and T2 fat-sat images were acquired. COMPARISON: 08/30/2024 Findings: No acute fracture identified. Posterior fusion from L3 to L4 is unchanged. Interbody disc fusion devices at the L3-L4 and L4-L5 disc spaces are unchanged. There is minimal grade 1 retrolisthesis of L2 over L3, unchanged. There is mild amorphous reactive marrow edema about the L1-L2 disc space due to underlying degenerative disc disease. No suspicious bone marrow signal abnormality seen. At L1-L2, there is advanced degenerative disc narrowing with mild disc bulge and moderate to severe facet arthropathy. There is minimal central canal stenosis. There is severe right neural foraminal narrowing, and minimal left neural foraminal narrowing. At L2-L3, there is diffuse disc bulge with moderate facet arthropathy. There is minimal central canal stenosis. There is severe bilateral neural foraminal narrowing. At L3-L4, there is no definite disc bulge or herniation. No central canal stenosis. There is probable moderate left neural foraminal narrowing. Right neural foramen preserved. At L4-L5, there is minimal disc bulge with posterior decompression. No spinal canal stenosis. Probable mild to moderate left neural foraminal narrowing. At L5-S1, there is diffuse disc bulge with severe facet arthropathy. No central canal stenosis. There is severe right neural foraminal narrowing, and moderate to severe left neural foraminal narrowing. Paravertebral soft tissues are unremarkable aside from expected postoperative change. Impression: Postoperative changes, as above. Advanced degenerative spondylosis, especially at L1-L2 and L5-S1. Moderate degenerative change at L2-L3. Reviewed, dictated and finalized at [facility] M. Impression: Postoperative changes, as above. Advanced degenerative spondylosis, especially at L1-L2 and L5-S1. Moderate dege nerative change at L2-L3.
--- OUTSIDE RECORDS SUMMARY | 2025-06-04 13:26 | XMS_ITS | Clinical Summary ---
Author Organization [facility] Address [address] [place] [address] Phone Care Team Providers Care Production Technician Name Role Phone Young Shaikh MD Primary [...] Comments Blood Pressure 128/70 09/18/2016 10:50 AM [employer]IAN Pulse - - Temperature - - Respiratory Rate - - Oxygen Saturation - - Inhaled Oxygen Concentration - - Weight 73.9 kg (163 lb) 09/18/2016 10:50 AM [employer] LIB[employer]ARIAN Height 165.1 cm (5' 5) 09/18/2016 10:50 AM [employer]IAN Body Mass Index 27.12 09/18/2016 10:50 AM [employer] LIBRARIAN Plan of Treatment Health Maintenance Due Date Last Done Comments Hepatitis C Virus (HCV) Screening 1935 TdaP Immunization 1935 Pneumococcal Immunization (5 0+ years) (1 of 1 - PCV) 1986 Zoster Immunization (1 of 2) 1986 Respiratory Syncytial Virus (RSV) Immunization (Adult) (1 - 1-dose 75+ series) 2011 SARS-COV-2 Immunization (1 - 2023- season) 2024 Influenza Immunization (#1) 2025 Hepatitis B Immunization Aged Out No longer eligible based on patient's age to complete this topic Human Papillomavirus (HPV) Immunization Aged Out No longer eligible b ased on patient's age to complete this topic Meningococcal Immunization (ACWY) Aged Out No longer eligible based on patient's age to complete this topic Rotavirus Immunization Aged Out No lo nger eligible based on patient's age to complete this topic Insurance MEDICARE [facility] Care Teams Production Technician Relationship Specialty Start Date End Date Neel, Young L, MD [address] [place] [address] PCP - General Family Medicine 09/18/16
--- OUTSIDE RECORDS SUMMARY | 2025-06-04 13:26 | XMS_ITS | Encounter Summary ---
Author Organization [facility] Address [address] [place] [address] Care Team Providers Care Retail Aide Name Role Phone Young Shaikh MD Primary Care Provider [phone] Sreekanth Donoavn MD Unavailable Unavailable Donis Eric MD Unavailable [phone] Contreras Sanchez MD Primary Care Provider [phone] Zeyad Chacon MD Primary Care Provider [phone] Encounter Details Date Type Department Care Team (Late st Contact Info) Description 03/22/2019 Abstract [facility] CONVERSION [address] [place] [address] , Generic Conversion, Social History Tobacco Use Types Packs/Day Years Used Date Smoking Tobacco: Former Smokeless Tobacco: Never Alcohol Use Standard Drinks/Week Comments No 0 (1 standard drink = 0.6 oz pur e alcohol) Comments Unknown Sex and Gender Information Value Date Recorded Sex Assigned at Female 04/16/2025 1:45 PM CDT Legal Sex Female 6:11 PM CDT Gender [...] Rule Out 11/06/2020 11/06/2020 11/07/2020 1:55 PM [employer] COVID-19 Rule Out 02/04/2021 02/04/2021 02/05/2021 8:40 PM CDT COVID-19 Rule Out 02/10/2021 02/10/2021 02/10/2021 10:24 AM CDT COVID-19 Rule Out 01/28/2022 01/28/2022 01/28/2022 7:03 PM CDT COVID-19 Rule Out 06/05/2022 06/05/2022 06/05/2022 12:55 PM CDT COVID-19 Rule Out 06/14/2022 06/14/2022 06/14/2022 7:22 PM CDT COVID-19 Rule Out 10/15/2023 10/15/2023 10/15/2023 11:13 AM [employer] COVID-19 Rule Out 12/14/2023 12/14/2023 12/14/2023 2:04 PM [employer] documented as of this encounter Care Teams Retail Aide Relationship Specialty Start Date End Date Young Shaikh MD [address] [place] [address] PCP - General FAMILY PRACTICE 11/23/17 09/04/22 Contreras Sanchez MD [address] [place] [address] PCP - General FAMILY PRACTICE 09/05/22 12/13/23 Zeyad Chacon MD [address] [address] PCP - General FAMILY PRACTICE 12/14/23 Sreekanth Donovan MD [address] [place] [address] INTERVENTIONAL CARDIOLOGY 10/31/18 09/21/19 Donis Eric MD [address] [place] [address] [employer] Template Maker CARDIOVASCULAR DISEASE 09/22/19 documented as of this encounter
--- OUTSIDE RECORDS SUMMARY | 2025-06-04 13:26 | XMS_ITS | Clinical Summary ---
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; has had a Negative nasal culture 03/07/19 Trochanteric bursitis of right hip 04/27/2021 Lumbar back pain 04/06/2021 Radiculopathy, lumbar region 01/07/2021 Recurrent urinary tract infection 11/02/2020 Overview (11/02/2020): Added automatically from request for surgery [id number] Urinary incontinence 04/26/2020 Primary osteoarthritis of right [...] Knee pain 02/08/2017 Cystocele 09/22/2016 Diabetes mellitus ([facility]) 09/01/2013 Resolved Problems Problem Noted Date Diagnosed Date Resolved Date Abdominal pain 10/04/2022 10/04/2022 Encounter for preventive health examination 09/01/2013 06/25/2020 Encounters Date Type Department Care Team Description 04/24/2025 9:32 AM CDT - 04/24/2025 11:59 PM CDT Hospital Encounter [facility] [address] [place] [address] Benjamin Lala, PT Low Back Pain Discharge Disposition: Home or Self Care (Routine Discharge) 04/24/2025 Travel 04/20/2025 9:25 AM CDT - 04/20/2025 11:59 PM CDT Hospital Encounter [facility] [address] [place] [id number] Roger Bello MD Fuchs, Sydney R, GREEN HIDE INSPECTOR Back Pain Discharge Disposition: Home or Self Care (Routine Discharge) 04/20/2025 Travel 04/16/2025 1:47 PM CDT - 04/16/2025 11:59 PM CDT Hospital Encounter [facility] [address] [place] [address] Zeyad Rosales MD Discharge Disposition: Home or Self Care (Routine Discharge) 04/16/2025 Travel 04/15/2025 11:40 AM CDT - 04/15/2025 11:59 PM CDT Hospital Encounter [facility] [address] [place] [address] Benjamin Lala, PT Bernardo Quezada, GREEN HIDE INSPECTOR Back Pain Discharge Disposition: Home or Self Care (Routine Discharge) 04/15/2025 Travel 04/13/2025 9:21 AM CDT - 04/13/2025 11:59 PM CDT Hospital Encounter [facility] [address] [place] [address] Roger Bello MD Fuchs, Sydney R, GREEN HIDE INSPECTOR Back Pain Discharge Disposition: Home or Self Care (Routine Discharge) 04/13/2025 Travel 04/08/2025 12:52 PM CDT - 04/08/2025 11:59 PM CDT Hospital [facility] [address] [place] [address] Benjamin Lala, Suzi Townsend, GREEN HIDE INSPECTOR Back Pain Discharge Disposition: Home or Self Care (Routine Discharge) 04/08/2025 Travel 04/06/2025 12:51 PM CDT - 04/06/2025 11:59 PM CDT Hospital Encounter [facility] [address] [place] [address] Benjamin Lala, Roger Rhoades MD Fuchs, Sydney R, GREEN HIDE INSPECTOR Back Pain Discharge Disposition: Home or Self Care (Routine Discharge) 04/06/2025 Travel 04/01/2025 12:56 PM CDT - 04/01/2025 11:59 PM CDT Hospital Encounter [facility] [address] [place] [address] Benjamin Lala, PT Suzi Lopez R, GREEN HIDE INSPECTOR Lumbar Pain Discharge Disposition: Home or Self Care (Routine Discharge) 04/01/2025 Travel 03/30/2025 11:21 AM CDT - 03/30/2025 11:59 PM CDT Hospital Encounter [facility] [address] [place] [address] Benjamin Lala, PT Roger Bello MD Lumbar Pain Discharge Disposition: Home or Self Care (Routine Discharge) 03/30/2025 Travel 03/26/2025 10:32 AM CDT - 03/26/2025 11:59 PM CDT Hospital Encounter [facility] [address] [place] [address] Benjamin Lala, PAIGE Lumbar Pain Discharge Disposition: Home or Self Care (Routine Discharge) 03/26/2025 Travel 03/25/2025 8:33 AM CDT - 03/25/2025 11:59 PM CDT Hospital Encounter [facility] [address] [place] [address] Zeyad Rosales MD Discharge Disposition: Home or Self Care (Routine Discharge) 03/25/2025 Orders Only [facility] [address] [place] [address] Zeyad Rosales MD 03/25/2025 Travel from Last 3 Months Family History Medical History Relation Comments Heart [...] declined 11/21/2022 How often do you attend congregation or spiritism serv ices? Patient declined 11/21/2022 Active Member [...] Recorded Patient Health Questionnaire-2 Score 0 11/21/2022 [facility] - Occupational Stress Questionnaire Answer Date Recorded [...] place to sleep or slept in a custodial (including now)? Patient refused 11/21/2022 Comments No [...] P M CDT Height 165.1 cm (5' 5) 04/06/2024 3:19 PM CDT Body Mass Index 25.39 04/06/2024 3:19 PM CDT Plan of Treatment Health Maintenance Due Date Last Done Comments Diabetes: Retinopathy Eye Exam 1953 Annual Medicare Wellness Visit 2001 RSV Immunization or 60+ Years (1 - 1-dose 75+ series) 2011 Pneumococcal Vaccine: 50+ Years (2 of 2 - PPSV23) 03/15/2017 01/18/2017 Zoster Vaccines (2 of 2) 12/13/2020 10/18/2020 COVID-19 Vaccine ( season) 2024 08/10/2022, 07/05/2021, 12/24/2020, Additional history exists Hemoglobin A1C 09/24/2025 03/25/2025, 12/0 03/2024, 03/25/2024, Additional history exists Lipid Panel 03/25/2026 03/25/2025, 03/15, 03/15/2022, Additional history exists DTaP, Tdap and Td [...] upon discharge from hospital Lifestyle No Gayathri Linder, RN Patient will return to prior living situation and remain independent in ADLs upon discharge from hospital Lifestyle No Gayathri Linder RN Safety Patient/family will have appropriate support at home upon discharge Lifestyle No Radha Herrera, RN Medical Devices Implanted Type Area Process Control Board Operator Device Identifier Shelf Expiration Date Model / Serial / Lot Graft Bone Bonus Triad Cancellous Cortical 1cc Allograft - [id number] Implanted:Qty: 1 on 02/07/2021 by Young Lees MD at [facility] Bone N/A: Spine Lumbar [employer] 07/22/2025 [id number] / [id number] / NA Sling Advantage Fit Mid-Urethral Transvaginal - [id number] Implanted:Qty: 1 on 04/26/2020 by Miles Wallis MD at [facility] N/A: Urinary Bladder AlephD MAVIS 10/20/2022 [id number] / [id number] Set Screw Implanted:Qty: 4 on 02/07/2021 by Young Lees MD at [facility] N/A: Spine Lumbar NEW AGE MEDICAL [id number] / / NA 5.5 X 30 Mm Mis Avtar Implanted:Qty: 1 on 02/07/2021 by Young Lees MD at [facility] N/A: Spine Lumbar NEW AGE MEDICAL [id number] / / NA 6.5 X 45 Mm Cortical Polyaxial Screw Implanted:Qty: 4 on 02/07/2021 by Young Lees MD at [facility] N/A: Spine Lumbar NEW AGE MEDICAL [id number] / / NA F3d Straight, 34 Mm X 10 Mm-0 Degree 12 Mm Implanted:Qty: 1 on 02/07/2021 by Young Lees MD at [facility] N/A: Spine Lumbar 10/19/2027 [id number] / / [id number] Description:CORELINK 5.5 X 35 Mm Mis Avtar Implanted:Qty: 1 on 02/07/2021 by Young Lees MD at [facility] N/A: Spine Lumbar NEW AGE MEDICAL [id number] / / NA Explanted Type Area Process Control Board Operator Device Identifier Shelf Expiration Date Model / Serial / Lot 1.4 Mm Guide Wire Explanted:Qty: 1 on 02/07/2021 by Young Lees MD at [facility] N/A: Spine Lumbar NEW AGE MEDICAL NAM-GUIDEW KEREN-SS-SHANNON NT 1.4 / / NA Procedures Procedure Name Priority Date/Time Associated Diagnosis Comments MG SCREENING W YIFAN LT DIGI Routine 04/16/2025 2:14 PM CDT Visit for screening mammogram ALBUMIN URINE RANDOM W/CREATININE Routine 03/25/2025 8:47 AM CDT Diabetes mellitus type 2, controlled ([facility]HCC) COMPREHENSIVE METABOLIC PANEL Routine 03/25/2025 8:44 AM CDT Diabetes mellitus type 2, controlled ([facility]CC) LIPID PANEL Routine 03/25/2025 8:44 AM CDT Diabetes mellitus type 2, controlled ([facility]CC) HEMOGLOBIN, GLYCOSYLATED Routine 03/25/2025 8:44 AM CDT Diabetes mellitus type 2, controlled ([facility]CC) from Last 3 Months Results * MG SCREENING W YIFAN LT DIGI (04/16/2025 2:14 PM CDT) Anatomical Region Laterality Modality Breast Left Mammography 04/16/2025 3:17 PM CDT Impressions 04/16/2025 3:19 PM CDT IMPRESSION: No interval features to suggest malignancy. In the absence of clinical symptoms, return for annual screening mammogram due in 1 year. RECOMMENDATION: Routine Screening, Left Mammogram in 1 year ASSESSMENT: ACR BI-RADS 1 - NEGATIVE Ordered By: ZEYAD ROSALES Interpreted By: Alberto Gonzalez MD, 04/16/2025 3:17 PM Narrative 04/16/2025 3:19 PM [address]T [address] [place] [address] EXAMINATION: LEFT SCREENING MAMMOGRAPHY Exam Date: 04/16/2025 1:47 PM CLINICAL INDICATION: 89 years of age female routine screening left breast. Prior right mastectomy in 2012. COMPARISON: Dating back to 03/15/2022 TECHNIQUE: Digital CC & MLO views. Tomosynthesis imaging acquisition Study read with the assistance of a computer-aided detection system. TISSUE DENSITY: There are scattered areas of fibroglandular density. FINDINGS: No suspicious grouping of microcalcifications, distortion, or suspicious nodule 3 dimensionally demonstrated. Stable tissue pattern. Breast calcifications are benign. us Zeyad Rosales MD MAMMO Final Result * ALBUMIN CREATININE URINE RANDOM (03/25/2025 8:47 AM CDT) ALBUMIN (U) 0.7 MG/DL 03/25/2025 9:04 AM CDT [facility] Comment:REFERENCE RANGE NOT ESTABLISHED CREATININE RANDOM (U) 40.0 MG/DL 03/25/2025 9:04 AM CDT [facility] Comment:REFERENCE RANGE NOT ESTABLISHED ALBUMIN/CREAT RATIO 17.5 <30 MG/G 03/25/2025 9:04 AM CDT [facility] Comment: NORMAL TO MILDLY INCREASED ALBUMINURIA: <30 MG/G MODERATELY INCREASED ALBUMINURIA: 30 TO 300 MG/G SEVERELY INCREASED ALBUMINURIA: >300 MG/G PER KDIGO URINE SPECIMEN / Unknown 03/25/2025 8:47 AM CDT us Zeyad Rosales MD URINE ORDERABLES Final Result [facility] Critical access hospital[address] [place] [address], * (ABNORMAL) HEMOGLOBIN, GLYCOSYLATED (03/25/2025 8:44 AM CDT) HGB A1C 5.8(H) <5.7 % 03/25/2025 1:05 PM CDT [facility] ESTIMATED AVG GLUCOSE 120(H) 74 - 114 MG/DL 03/25/2025 1:05 PM CDT [facility] 03/25/2025 8:44 AM CDT us Zeyad Rosales MD LABORATORY Final Result [facility] [address] [place] [address], [place] [phone] [id number] * (ABNORMAL) COMPREHENSIVE METABOLIC PANEL (03/25/2025 8:44 AM CDT) SODIUM S/P/B 137 136 - 145 MMOL/L 03/25/2025 9:04 AM CDT [facility] POTASSIUM S/P/B 4.6 3.5 - 5.1 MMOL/L 03/25/2025 9:04 AM CDT [facility] CHLORIDE S/P/B 101 98 - 107 MMOL/L 03/25/2025 9:04 AM CDT [facility] CO2 30.1 21.0 - 32.0 MMOL/L 03/25/2025 9:04 AM T [facility] GLUCOSE 124(H) 70 - 99 MG/DL 03/25/2025 9:04 AM T [facility] Comment: FASTING GLUCOSE 100 TO 125 MG/DL IS CONSISTENT WITH IMPAIRED FASTING GLUCOSE. FASTING GLUCOSE >125 MG/DL IS CONSISTENT WITH DIABETES. RANDOM GLUCOSE >200 MG/DL WITH HYPERGLYCEMIC SYMPTOMS IS CONSISTENT WITH DIABETES. PER ADA GUIDELINES BUN 18 6 - 24 MG/DL 03/25/2025 9:04 AM CDT [facility] CREATININE S/P/B 1.10(H) 0.55 - 1.02 MG/DL 03/25/2025 9:04 AM CDT [facility] CALCIUM S/P/B 9.2 8.4 - 10.5 MG/DL 03/25/2025 9:04 AM CDT [facility] BILIRUBIN TOTAL S/P/B 0.3 0.2 - 1.0 MG/DL 03/25/2025 9:04 AM CDT [facility] Comment: THIS ASSAY IS NOT RECOMMENDED FOR PATIENTS UNDERGOING TREATMENT WITH ELTROMBOPAG DUE TO THE POTENTIAL FOR FALSELY ELEVATED RESULTS. ALKALINE PHOSPHATASE S/P/B 104 55 - 142 U/L 03/25/2025 9:04 AM CDT [facility] AST 12(L) 15 - 37 U/L 03/25/2025 9:04 AM T [facility] ALT 17 14 - 59 U/L 03/25/2025 9:04 AM T [facility] TOTAL PROTEIN S/P/B 7.5 6.4 - 8.2 G/DL 03/25/2025 9:04 AM CDT [facility] ALBUMIN S/P/B 3.6 3.4 - 5.0 G/DL 03/25/2025 9:04 AM T [facility] ANION GAP 5.9 5.0 - 15.0 MMOL/L 03/25/2025 9:04 AM T [facility] OSMOLALITY (CALC) 287 MOSM/KG 025 9:04 AM T [facility] Comment:REFERENCE RANGE NOT ESTABLISHED GFR ESTIMATE 48(L) >89 ML/MIN/1. 73 M2 03/25/2025 9:04 AM T [facility] GFR NOTES GFR REFERENCE S: 03/25/2025 9:04 AM [facility] [facility] Comment: THE ESTIMATED GFR IS CALCULATED USING THE 2020 CKD-EPI EQUATION. THE FOLLOWING CATEGORIES FOR GRADING RENAL FUNCTION ARE RECOMMENDED BY THE INTERNATIONAL SOCIETY OF NEPHROLOGY (KDIGO 2012 CLINICAL PRACTICE GUIDELINE). G1,NORMAL OR HIGH: >89 ml/min/1.73 m2 G2,MILDLY DECREASED: 60-89 ml/min/1.73 m2 G3A,MILDLY TO MODERATELY DECREASED: 45-59 ml/min/1.73 m2 G3B,MODERATELY TO SEVERELY DECREASED: 30-44 ml/min/1.73 m2 G4,SEVERELY DECREASED: 15-29 ml/min/1.73 m2 G5,KIDNEY FAILURE: <15 ml/min/1.73 m2 03/25/2025 8:44 AM CDT us Zeyad Rosales MD LABORATORY Final Result [facility] [address] [place] [address], * LIPID PANEL (03/25/2025 8:44 AM CDT) CHOLESTEROL 150 MG/DL 03/25/2025 12:08 PM CDT [facility] Comment:DESIRABLE: <200 TRIGLYCERIDES 75 MG/DL 03/25/2025 12:08 PM CDT [facility] Comment:<150 NORMAL HDL 58 >49 MG/DL 03/25/2025 12:08 PM CDT [facility] LDL-C 77 MG/DL 03/25/2025 12:08 PM CDT [facility] Comment:<100 OPTIMAL VLDL CALCULATION 15 MG/DL 03/25/20 25 12:08 PM CDT [facility] Comment:REFERENCE RANGE NOT ESTABLISHED CHOL/HDL RATIO 2.6 03/25/2025 12:08 PM CDT [facility] Comment:REFERENCE RANGE NOT ESTABLISHED LDL/HDL 1.3 03/25/2025 12:08 PM CDT [facility] Comment:REFERENCE RANGE NOT ESTABLISHED NON HDL CHOLESTEROL 92 MG/DL 03/25/2025 12:08 PM CDT [facility] Comment:REFERENCE RANGE NOT ESTABLISHED 03/25/2025 8:44 AM CDT Zeyad Rosales MD LABORATORY Final Result [facility] [address] [place] [address], [place] [phone] [id number] from Last 3 Months Additional Health Concerns Infection Onset Date Last Indicated ESBL - Extended Spectrum Bet a-lactamase Comment:10/17/19 Urine (JJ) 12/08/19 Urine (JJ) 04/23/2020 04/23/2020 Insurance MEDICARE [facility] Member Subscriber Plan / Payer ( fective 2018-Present) Name:Maira Parham Relation to Subscriber:Self Name:MAIRA PARHAM Payer ID:[id number] (NAIC) Type:Not on file Address: [address] [place] [id number] MEDICARE Advance Directives Documents on File Type Date Recorded Patient [place] Controlled Atmospheric Furnace Expl anation Guardianship - Temporary 02/11/2021 11:14 [...] 11:04 AM 09/06/2022 3:44 PM Care Teams Kiln Car Repairer Relationship Specialty Start Date End Date Zeyad Rosales MD [address] [place] [address] PCP - General FAMILY PRACTICE 12/14/23 Donis Eric MD [place] Credit Investigator CARDIOVASCULAR DISEASE 09/22/19
== END 2025-06-04 13:16 | disposition home or self-care (01) ==
PROVIDERS: PCP Family Medicine; Visit Provider Neurological Surgery
DX: M51.26 Other intervertebral disc displacement, lumbar region (principal); Z98.890 Other specified postprocedural states; M43.06 Spondylolysis, lumbar region
CPT/HCPCS: 72148